=== PATIENT | male | born 1960 | race Caucasian/White ===

== ENCOUNTER → 2016-03-23 | Outpatient (REF) | payer OTHER ==
[~2016-03-23] MED LIST: AMLO5TAB2 PO; ASPI81TAEC PO; ATOR1TAB21 PO; COLA100C PO
[2016-03-23 12:37] LABS: ALBUMIN 4.3 GM/DL (3.2-5.2); ALKALINE PHOSPHATASE 140 U/L (45-117); ALT/SGPT 80 U/L (12-78); ANION GAP 9 MEQ/L (8-16); AST/SGOT 40 U/L (15-37); BILIRUBIN,TOTAL 0.4 MG/DL (0.2-1.0); BLOOD UREA NITROGEN 13 MG/DL (7-18); CALCIUM LEVEL 9.8 MG/DL (8.5-10.1); CARBON DIOXIDE LEVEL 28 MEQ/L (21-32); CHLORIDE LEVEL 107 MEQ/L (98-107); CHOLESTEROL LEVEL 164 MG/DL (<200); CREATININE FOR GFR 0.92 MG/DL (0.70-1.30); GLOMERULAR FILTRATION RATE > 60.0 (>56); GLUCOSE, FASTING 94 MG/DL (70-105); MAGNESIUM LEVEL 2.3 MG/DL (1.8-2.4); POTASSIUM SERUM 4.5 MEQ/L (3.5-5.1); SODIUM LEVEL 144 MEQ/L (136-145); TOTAL PROTEIN 7.6 GM/DL (6.4-8.2); TRIGLYCERIDES LEVEL 220 MG/DL (<150)
== END ==
LOC: M SFHCPLAZ 07:59
PROVIDERS: ATTEND Family Medicine
DX: E78.2 Mixed hyperlipidemia (principal); I10 Essential (primary) hypertension; Z12.5 Encounter for screening for malignant neoplasm of prostate
CPT/HCPCS: 36415; 80053; 80061; 81001; 82043; 82550; 83735; 86140; G0103

== ENCOUNTER → 2016-03-28 | Outpatient (REF) | payer OTHER | LOC: M LABDRAW1 15:28 | PROVIDERS: ATTEND Psychiatry & Neurology Neurology | DX: R51 Headache (principal) ==

== ENCOUNTER → 2016-03-28 | Outpatient (CLI) | payer OTHER ==
--- NOTE | 2016-03-28 14:06 | REP ---
CT HEAD WITHOUT CONTRAST: HISTORY: Infarction. COMPARISON: MR 02/24/2016 A small area of decreased attenuation is present in the posterior left temporal and occipital lobes. There is dilatation of the overlying cortical sulci and atrium and occipital horn of the left lateral ventricle. This represents an old infarction. Areas of decreased attenuation are present in the periventricular and subcortical white matter. This represents small vessel ischemic disease. There is no intraparenchymal hemorrhage, mass or midline shift. The ventricular system and cortical sulci are dilated consistent with minimal volume loss. There is no extracerebral collection. The visualized sinuses are clear. IMPRESSION: 1. 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 2. Small vessel ischemic disease. 3. Minimal volume loss. Signed by Emanuel Dyer MD 03/28/2016 02:13 P
== END ==
LOC: M RAD 12:56
PROVIDERS: ATTEND Psychiatry & Neurology Neurology
DX: I63.9 Cerebral infarction, unspecified (principal); R51 Headache

== ENCOUNTER → 2016-05-19 | Outpatient (REF) | payer OTHER ==
[2016-05-19 14:04] LABS: ALBUMIN 3.9 GM/DL (3.2-5.2); ALBUMIN/GLOBULIN RATIO 1.39 (1.00-1.93); ALKALINE PHOSPHATASE 147 U/L (45-117); ALT/SGPT 58 U/L (12-78); ANION GAP 9 MEQ/L (8-16); AST/SGOT 31 U/L (15-37); BILIRUBIN,TOTAL 0.4 MG/DL (0.2-1.0); BLOOD UREA NITROGEN 10 MG/DL (7-18); CALCIUM LEVEL 8.6 MG/DL (8.5-10.1); CARBON DIOXIDE LEVEL 29 MEQ/L (21-32); CHLORIDE LEVEL 106 MEQ/L (98-107); CREATININE FOR GFR 1.01 MG/DL (0.70-1.30); FERRITIN 406 NG/ML (26-388); GLOMERULAR FILTRATION RATE > 60.0 (>56); GLUCOSE, FASTING 87 MG/DL (70-105); PERCENT SATURATION 23.6 % (19.7-37.4); SODIUM LEVEL 144 MEQ/L (136-145); TOTAL IRON BINDING CAPACITY 331 UG/DL (250-450); TOTAL PROTEIN 6.7 GM/DL (6.4-8.2)
== END ==
LOC: M SFHCPLAZ 09:42
PROVIDERS: ATTEND Family Medicine
DX: Z12.5 Encounter for screening for malignant neoplasm of prostate (principal); K70.9 Alcoholic liver disease, unspecified
CPT/HCPCS: 36415; 80053; 82728; 83550; 83970; 86021; 86038; 86803; 87340; G0103

== ENCOUNTER → 2017-01-23 | Outpatient (REF) ==
[~2017-01-23] MED LIST changes: -COLA100C PO; +COLA100C5 PO
--- NOTE | 2017-01-23 11:57 | REP ---
Clinical: Pain. Technique: Internal rotation, external rotation, and Y view left shoulder. Findings: Mild cortical irregularity at the acromioclavicular joint is appreciated. No significant osteophytosis or periarticular calcifications are identified. Surrounding soft tissues are grossly unremarkable. Evidence for prior tendinous repair with plug in the proximal humeral diaphysis. Impression: Mild arthritic degenerative changes. Signed by Jw Ann MD 01/23/2017 11:49 A
--- NOTE | 2017-01-23 12:00 | REP ---
Clinical: Pain and disability. Technique: AP, lateral, coned-down views of the lumbosacral spine. Findings: Alignment and lordosis maintained. Endplate sclerosis and disc space narrowing at the L4-5 and L5-S1 levels with mild chronic compression deformity to the L5 vertebral body consistent with focal moderate degenerative disc disease. No acute fracture / compression injury or subluxation. Impression: Moderate degenerative disc disease involving the L5 vertebral body and associated L4-5 and L5-S1 disc levels. Signed by Jw Ann MD 01/23/2017 11:51 A
== END ==
LOC: M SMT 11:19
PROVIDERS: ATTEND Internal Medicine
DX: M51.36 Other intervertebral disc degeneration, lumbar region (principal)

== ENCOUNTER → 2017-02-09 | Outpatient (REF) | payer OTHER ==
[2017-02-09 12:07] LABS: INR 0.96
[2017-02-09 12:17] LABS: ALBUMIN 4.1 GM/DL (3.2-5.2); ALBUMIN/GLOBULIN RATIO 1.32 (1.00-1.93); ALKALINE PHOSPHATASE 114 U/L (45-117); ALT/SGPT 61 U/L (12-78); ANION GAP 10 MEQ/L (8-16); AST/SGOT 31 U/L (7-37); BILIRUBIN,TOTAL 0.4 MG/DL (0.2-1.0); BLOOD UREA NITROGEN 8 MG/DL (7-18); CALCIUM LEVEL 9.6 MG/DL (8.5-10.1); CARBON DIOXIDE LEVEL 26 MEQ/L (21-32); CHLORIDE LEVEL 107 MEQ/L (98-107); CREATININE FOR GFR 0.85 MG/DL (0.70-1.30); GLOMERULAR FILTRATION RATE > 60.0 (>56); GLUCOSE, FASTING 99 MG/DL (70-105); POTASSIUM SERUM 4.5 MEQ/L (3.5-5.1); SODIUM LEVEL 143 MEQ/L (136-145); TOTAL PROTEIN 7.2 GM/DL (6.4-8.2)
== END ==
LOC: M SFHCPLAZ 09:29
PROVIDERS: ATTEND Family Medicine
DX: K70.9 Alcoholic liver disease, unspecified (principal); R73.01 Impaired fasting glucose; E55.9 Vitamin D deficiency, unspecified

== ENCOUNTER → 2017-06-05 | Outpatient (REF) | payer OTHER ==
[2017-06-05 12:10] LABS: ALBUMIN 4.4 GM/DL (3.2-5.2); ANION GAP 6 MEQ/L (8-16); BLOOD UREA NITROGEN 12 MG/DL (7-18); C REACTIVE PROTEIN QUANTITATIV 0.38 MG/DL (0.00-0.30); CALCIUM LEVEL 9.5 MG/DL (8.5-10.1); CARBON DIOXIDE LEVEL 29 MEQ/L (21-32); CHLORIDE LEVEL 103 MEQ/L (98-107); CHOLESTEROL LEVEL 180 MG/DL (<200); CHOLESTEROL RISK RATIO 2.278 (<5); CPK CREATINE PHOSPHOKINASE 117 U/L (39-308); CREATININE FOR GFR 0.98 MG/DL (0.70-1.30); GLOMERULAR FILTRATION RATE > 60.0 (>56); GLUCOSE, FASTING 121 MG/DL (70-100); HDL CHOLESTEROL 79 MG/DL (>40); MAGNESIUM LEVEL 2.4 MG/DL (1.8-2.4); NON-HDL-C 101 MG/DL; PHOSPHORUS LEVEL 3.4 MG/DL (2.5-4.9); POTASSIUM SERUM 4.7 MEQ/L (3.5-5.1); PSA SCREENING 6.71 NG/ML (< 4.0); SODIUM LEVEL 138 MEQ/L (136-145); TRIGLYCERIDES LEVEL 165 MG/DL (<150)
[2017-06-05 12:13] LABS: PTH INTACT 54.4 PG/ML (18.5-88.0); TOTAL 25(OH) VITAMIN D 30.5 NG/ML (30.0-100.0)
[2017-06-05 14:16] LABS: ESTIMATED AVERAGE GLUCOSE 114 MG/DL (60-110); HEMOGLOBIN A1c 5.6 %
[2017-06-08 00:07] LABS: VITAMIN D 1,25 DIHYDROXY 41.4 pg/mL (19.9-79.3)
== END ==
LOC: M SFHCPLAZ 08:44
DX: E78.2 Mixed hyperlipidemia (principal); R73.01 Impaired fasting glucose; E55.9 Vitamin D deficiency, unspecified; Z12.5 Encounter for screening for malignant neoplasm of prostate

== ENCOUNTER → 2017-11-07 | Outpatient (CLI) | payer OTHER | LOC: M WUC 17:11 | DX: M19.041 Primary osteoarthritis, right hand (principal) | CPT/HCPCS: 73030 ==

== ENCOUNTER 2017-11-14 15:09 | Outpatient (RCR) | payer OTHER | END 2017-12-02 | LOC: M PT 11-19 09:13 | DX: Z51.89 Encounter for other specified aftercare (principal); M25.511 Pain in right shoulder | CPT/HCPCS: 97010 ==

== ENCOUNTER 2017-12-03 10:19 | Outpatient (RCR) | payer OTHER | END 2018-01-02 | LOC: M PT 12-06 10:00 | DX: Z51.89 Encounter for other specified aftercare (principal); M25.511 Pain in right shoulder | CPT/HCPCS: 97010 ==

== ENCOUNTER → 2018-02-07 | Outpatient (REF) | payer OTHER ==
[2018-02-07 18:48] LABS: PROTHROMBIN TIME 13.3 SECONDS (12.1-14.4)
[2018-02-07 18:49] LABS: PARTIAL THROMBOPLASTIN TIME 27.2 SECONDS (25.4-37.6)
[2018-02-07 18:54] LABS: ESTIMATED AVERAGE GLUCOSE 151 MG/DL (60-110); HEMOGLOBIN A1c 6.9 %
[2018-02-07 18:57] LABS: ALBUMIN/GLOBULIN RATIO 1.21 (1.00-1.93); ALKALINE PHOSPHATASE 133 U/L (45-117); ALT/SGPT 64 U/L (12-78); ANION GAP 10 MEQ/L (8-16); AST/SGOT 46 U/L (7-37); BILIRUBIN,TOTAL 0.4 MG/DL (0.2-1.0); BLOOD UREA NITROGEN 12 MG/DL (7-18); CALCIUM LEVEL 9.1 MG/DL (8.5-10.1); CARBON DIOXIDE LEVEL 27 MEQ/L (21-32); CHLORIDE LEVEL 103 MEQ/L (98-107); CREATININE FOR GFR 0.79 MG/DL (0.70-1.30); GLOMERULAR FILTRATION RATE > 60.0 (>56); GLUCOSE, FASTING 89 MG/DL (70-100); MAGNESIUM LEVEL 2.2 MG/DL (1.8-2.4); POTASSIUM SERUM 4.6 MEQ/L (3.5-5.1); PSA SCREENING 1.4 NG/ML (< 4.0); SODIUM LEVEL 140 MEQ/L (136-145); TOTAL PROTEIN 7.3 GM/DL (6.4-8.2)
[2018-02-07 19:04] LABS: PTH INTACT 62.7 PG/ML (18.5-88.0); TOTAL 25(OH) VITAMIN D 28.6 NG/ML (30.0-100.0)
[2018-02-08 10:58] LABS: ALPHA FETOPROTEIN TUMOR QUANT 3.2 NG/ML (<8.1)
[2018-02-09 14:13] LABS: INSULIN LEVEL 61.8 uIU/mL (2.6-24.9)
== END ==
LOC: M SFHCPLAZ 15:13
DX: Z12.5 Encounter for screening for malignant neoplasm of prostate (principal); R73.01 Impaired fasting glucose; I10 Essential (primary) hypertension; E55.9 Vitamin D deficiency, unspecified; G44.209 Tension-type headache, unspecified, not intractable

== ENCOUNTER → 2020-08-09 | Outpatient (REF) | payer MEDICARE ==
[~2020-08-09] MED LIST changes: +AMLO1TAB24 PO; -AMLO5TAB2 PO; +ASPI-569 PO; -ASPI81TAEC PO
[2020-08-09 13:19] LABS: BASO % 0.6 % (0.0-1.0); EOS # 0.3 10^3/uL (0.0-0.5); EOS % 3.8 % (0.0-3.0); HEMATOCRIT 44.3 % (42.0-52.0); HEMOGLOBIN 14.6 g/dl (13.5-17.5); LYMPH # 1.2 10^3/uL (1.5-5.0); LYMPH % 18.2 % (24.0-44.0); MEAN CORPUSCULAR HEMOGLOBIN 31.5 pg (27.0-33.0); MEAN CORPUSCULAR VOLUME 95.5 fl (80.0-96.0); MONO # 0.8 10^3/uL (0.0-0.8); MONO % 11.5 % (2.0-8.0); NEUTROPHILS # 4.3 10^3/uL (1.5-8.5); NEUTROPHILS % 65.1 % (36.0-66.0); PLATELET COUNT, AUTOMATED 151 10^3/uL (150-450); RED BLOOD COUNT 4.64 10^6/uL (4.30-6.10); WHITE BLOOD COUNT 6.5 10^3/uL (4.0-10.0)
[2020-08-09 13:50] LABS: ALBUMIN 4.3 GM/DL (3.2-5.2); ALT/SGPT 130 U/L (12-78); BILIRUBIN,TOTAL 0.3 MG/DL (0.2-1.0); BLOOD UREA NITROGEN 14 MG/DL (7-18); CALCIUM LEVEL 9.7 MG/DL (8.8-10.2); CARBON DIOXIDE LEVEL 30 MEQ/L (21-32); CHLORIDE LEVEL 103 MEQ/L (98-107); CHOLESTEROL LEVEL 145 MG/DL (<200); CHOLESTEROL RISK RATIO 3.222 (<5); CREATININE FOR GFR 0.76 MG/DL (0.70-1.30); FERRITIN 581 NG/ML (26-388); FREE T4 1.02 NG/DL (0.76-1.46); GLOMERULAR FILTRATION RATE > 60.0 (>49); GLUCOSE, FASTING 127 MG/DL (70-100); HDL CHOLESTEROL 45 MG/DL (>40); LDL CHOLESTEROL 54 MG/DL (<100); NON-HDL-C 100 MG/DL; POTASSIUM SERUM 5.2 MEQ/L (3.5-5.1); SODIUM LEVEL 137 MEQ/L (136-145); TOTAL PROTEIN 7.6 GM/DL (6.4-8.2); TRIGLYCERIDES LEVEL 231 MG/DL (<150)
[2020-08-09 13:52] LABS: PTH INTACT 54.6 PG/ML (18.5-88.0); TOTAL 25(OH) VITAMIN D 29.1 NG/ML (30.0-100.0)
[2020-08-09 14:03] LABS: MALB URINE SIEMENS 8.4 MG/L; MAU/CREAT RATIO 6.7 MCG/MG (0.0-30.0)
== END ==
LOC: M SFHCPLAZ 09:33
PROVIDERS: ATTEND Family Medicine
DX: R73.01 Impaired fasting glucose (principal); I10 Essential (primary) hypertension; Z12.5 Encounter for screening for malignant neoplasm of prostate; E55.9 Vitamin D deficiency, unspecified; Z79.899 Other long term (current) drug therapy
CPT/HCPCS: 36415; 80053; 80061; 82043; 82306; 82728; 83036; 83525; 83970; 84439; 84443; 85025; G0103

== ENCOUNTER → 2020-08-18 | Outpatient (CLI) | payer MEDICARE ==
--- NOTE | 2020-08-18 10:37 | REP ---
INDICATION: ALCOHOLIC LIVER DISEASE COMPARISON: None. TECHNIQUE: Real time anthony scale ultrasound examination using curved array transducer. FINDINGS: Liver is hyperechoic with decreased through transmission suggesting fatty infiltration. No focal hepatic lesion identified. Pancreas is incompletely evaluated due to interposed bowel gas. The gallbladder is normal and without gallstones, wall thickening, or pericholecystic fluid. No biliary ductal dilatation is appreciated and the common bile duct measures 3.3 mm diameter. Right kidney is normal in reniform shape without hydronephrosis and measures 11.7 x 5.8 x 5.4 cm. No ascites in the visualized right upper quadrant. IMPRESSION: Hepatosteatosis. <Electronically signed by Jw Ann > 08/18/20 [id number]
== END ==
LOC: M RAD 09:44
PROVIDERS: ATTEND Family Medicine
DX: K70.9 Alcoholic liver disease, unspecified (principal)

== ENCOUNTER → 2021-02-08 | Outpatient (CLI) | payer MEDICARE ==
[2021-02-08 10:31] LABS: BASO % 0.4 % (0.0-1.0); EOS # 0.4 10^3/uL (0.0-0.5); EOS % 5.2 % (0.0-3.0); HEMOGLOBIN 15.2 g/dl (13.5-17.5); LYMPH # 1.5 10^3/uL (1.5-5.0); LYMPH % 21.8 % (24.0-44.0); MEAN CORPUSCULAR HEMOGLOBIN 31.1 pg (27.0-33.0); MEAN CORPUSCULAR VOLUME 94.3 fl (80.0-96.0); MONO # 0.8 10^3/uL (0.0-0.8); MONO % 11.2 % (2.0-8.0); NEUTROPHILS # 4.1 10^3/uL (1.5-8.5); NEUTROPHILS % 60.8 % (36.0-66.0); PLATELET COUNT, AUTOMATED 163 10^3/uL (150-450); RED BLOOD COUNT 4.88 10^6/uL (4.30-6.10); WHITE BLOOD COUNT 6.7 10^3/uL (4.0-10.0)
[2021-02-08 10:41] LABS: INR 0.94
[2021-02-08 10:42] LABS: PARTIAL THROMBOPLASTIN TIME 27.4 SECONDS (25.9-37.0)
[2021-02-08 11:22] LABS: ALBUMIN 4.2 GM/DL (3.2-5.2); ALT/SGPT 88 U/L (12-78); BILIRUBIN,TOTAL 0.4 MG/DL (0.2-1.0); BLOOD UREA NITROGEN 11 MG/DL (7-18); CALCIUM LEVEL 10.2 MG/DL (8.8-10.2); CARBON DIOXIDE LEVEL 29 MEQ/L (21-32); CHLORIDE LEVEL 104 MEQ/L (98-107); CREATININE FOR GFR 0.87 MG/DL (0.70-1.30); FERRITIN 544 NG/ML (26-388); FREE T4 0.97 NG/DL (0.76-1.46); GLOMERULAR FILTRATION RATE > 60.0 (>49); GLUCOSE, FASTING 113 MG/DL (70-100); IRON (FE) 157 UG/DL (65-175); PERCENT SATURATION 42.5 % (19.7-50.0); SODIUM LEVEL 139 MEQ/L (136-145); TOTAL IRON BINDING CAPACITY 369 UG/DL (250-450); VITAMIN B12 LEVEL 318 PG/ML (247-911)
[2021-02-10 11:52] LABS: ALBUMIN 4.67 GM/DL (3.29-5.55); ALBUMIN % 58.4 % (55.8-66.1); ALPHA-1-GLOBULIN % 4.3 % (2.9-4.9); ALPHA-1-GLOBULINS 0.34 GM/DL (0.17-0.41); ALPHA-2-GLOBULINS 0.93 GM/DL (0.42-0.99); ALPHA-2-GLOBULINS % 11.6 % (7.1-11.8); BETA-1-GLOBULINS % 6.2 % (4.7-7.2); BETA-2-GLOBULINS 0.42 GM/DL (0.19-0.55); BETA-2-GLOBULINS % 5.3 % (3.2-6.5); GAMMA GLOBULIN % 14.2 % (11.1-18.8); GAMMA GLOBULINS 1.14 GM/DL (0.65-1.58)
== END ==
LOC: M PLALAB 09:06
PROVIDERS: ATTEND Family Medicine
DX: R73.01 Impaired fasting glucose (principal); K70.9 Alcoholic liver disease, unspecified; E78.2 Mixed hyperlipidemia; D75.89 Other specified diseases of blood and blood-forming organs
CPT/HCPCS: 36415; 80053; 82105; 82140; 82172; 82607; 82728; 83010; 83036; 83550; 83883; 84165; 84439; 84443; 85025; 85610; 85730; G0463

== ENCOUNTER → 2021-03-08 | Outpatient (CLI) | payer MEDICARE ==
[~2021-03-08] MED LIST changes: +PROHANCE 279.3MG/ML 15ML VIAL As Ordered ONE; +PROHANCE 279.3MG/ML 5ML VIAL As Ordered ONE
--- NOTE | 2021-03-08 15:52 | REPVR ---
PROCEDURE INFORMATION: Exam: MR Head Without and With Contrast Exam date and time: 03/08/2021 3:16 PM Age: 60 years old Clinical indication: Condition or disease; Patient HX: PT states following up on HX of stroke 6-7 yrs ago, where he lost vision in RT eye; Additional info: Optic neuritis TECHNIQUE: Imaging protocol: MR of the head without and with intravenous contrast. Contrast material: PROHANCE; Contrast volume: 16 ml; Contrast route: INTRAVENOUS (IV); COMPARISON: CT Head without contrast 03/28/2016 1:11 PM FINDINGS: Brain: Examination again demonstrates a chronic infarction in the left occipital lobe with adjacent volume loss changes. There is mild patchy increased T2 signal intensity within the bilateral cerebral periventricular white matter, consistent with chronic microvascular ischemic changes. There is no abnormal diffusion weighted signal intensity to suggest an acute ischemic event. There is mild diffuse cerebral atrophy present, consistent with this patient's age. Examination of the posterior fossa demonstrates no significant abnormality. Cerebral ventricles: The ventricular system demonstrates mild diffuse compensatory enlargement. Bones/joints: Unremarkable. Paranasal sinuses: Chronic right maxillary sinusitis with near-complete opacification. Mastoid air cells: Normal as visualized. No mastoid effusion. Orbital cavity: Unremarkable. Soft tissues: Unremarkable. IMPRESSION: 1. No acute infarction, masses or hemorrhage is seen. No acute intracranial abnormality is identified. No abnormal contrast enhancement is seen.There has been no adverse interval change since the previous study. 2. Diffuse age-related cerebral atrophy and mild chronic microvascular white matter ischemic changes, without evidence of an acute intracranial abnormality. 3. Examination again demonstrates a chronic infarction in the left occipital lobe with adjacent volume loss changes. 4. Chronic right maxillary sinusitis with near-complete opacification. Electronically signed by: Keo Padron On 03/08/2021 15:52:12 PM
--- NOTE | 2021-03-08 15:59 | REPVR ---
PROCEDURE INFORMATION: Exam: MR Orbit Without and With Contrast Exam date and time: 03/08/2021 3:17 PM Age: 60 years old Clinical indication: Condition or disease; Patient HX: PT states following up on HX of stroke from 6-7 yrs ago and lost vision in RT eye; Additional info: Optic neuritis TECHNIQUE: Imaging protocol: MR Orbit was performed without and with contrast. Contrast material: PROHANCE; Contrast volume: 16 ml; Contrast route: INTRAVENOUS (IV); COMPARISON: CT Head without contrast 03/28/2016 1:11 PM FINDINGS: Orbital cavity: Examination reveals bilateral globes to be normal in size and morphology. The optic nerves are normal in thickness and signal intensity and symmetric bilaterally. The extraocular muscles are normal in thickness and signal intensity. The retroconal fat has a normal appearance. The lacrimal glands appear normal bilaterally. No abnormal contrast enhancement is seen. Paranasal sinuses: Chronic right maxillary sinusitis with near-complete opacification. Mild mucosal thickening in bilateral ethmoid sinuses. Brain: No acute infarction, masses or hemorrhage is seen. No acute intracranial abnormality is identified.There is mild diffuse cerebral atrophy present, consistent with this patient's age. Pituitary gland and sella: The pituitary gland is normal in size, signal and enhancement. No hemorrhage or masses are seen. Normal posterior pituitary bright signal on T1-weighted images is identified. The pituitary stalk is in the midline. The cavernous sinuses and suprasellar cistern appear normal. Cerebral ventricles: The ventricular system demonstrates mild diffuse compensatory enlargement. Bones/joints: Bone marrow signal intensity of the visualized osseous structures is unremarkable. No acute fracture or dislocation is seen. Soft tissues: Unremarkable. IMPRESSION: 1. Examination reveals bilateral globes to be normal in size and morphology. The optic nerves are normal in thickness and signal intensity and symmetric bilaterally. The extraocular muscles are normal in thickness and signal intensity. The retroconal fat has a normal appearance. The lacrimal glands appear normal bilaterally. No abnormal contrast enhancement is seen. 2. Chronic right maxillary sinusitis with near-complete opacification. Mild mucosal thickening in bilateral ethmoid sinuses. Electronically signed by: Keo Padron On 03/08/2021 15:58:39 PM
== END ==
LOC: M RAD 13:07
PROVIDERS: ATTEND Ophthalmology
DX: H46.9 Unspecified optic neuritis (principal); J01.00 Acute maxillary sinusitis, unspecified; G31.9 Degenerative disease of nervous system, unspecified
CPT/HCPCS: 70543; 70553; A9576

== ENCOUNTER → 2021-08-02 | Outpatient (CLI) | payer MEDICARE ==
[~2021-08-02] MED LIST changes: -PROHANCE 279.3MG/ML 15ML VIAL As Ordered ONE; -PROHANCE 279.3MG/ML 5ML VIAL As Ordered ONE
[2021-08-02 14:18] LABS: HEMOGLOBIN A1c 6.1 %
[2021-08-02 14:35] LABS: ALBUMIN 3.9 GM/DL (3.2-5.2); ALT/SGPT 89 U/L (12-78); BILIRUBIN,TOTAL 0.3 MG/DL (0.2-1.0); BLOOD UREA NITROGEN 10 MG/DL (7-18); CALCIUM LEVEL 9.9 MG/DL (8.8-10.2); CARBON DIOXIDE LEVEL 32 MEQ/L (21-32); CHLORIDE LEVEL 104 MEQ/L (98-107); CHOLESTEROL LEVEL 161 MG/DL (<200); CHOLESTEROL RISK RATIO 2.824 (<5); FREE T4 0.91 NG/DL (0.76-1.46); GLOMERULAR FILTRATION RATE > 60.0 (>49); GLUCOSE, FASTING 122 MG/DL (70-100); HDL CHOLESTEROL 57 MG/DL (>40); LDL CHOLESTEROL 68 MG/DL (<100); NON-HDL-C 104 MG/DL; POTASSIUM SERUM 5.1 MEQ/L (3.5-5.1); SODIUM LEVEL 139 MEQ/L (136-145); TOTAL PROTEIN 7.5 GM/DL (6.4-8.2); TRIGLYCERIDES LEVEL 180 MG/DL (<150)
[2021-08-02 15:02] LABS: THYROID PEROXIDASE ANTIBODY < 28.0 U/ML (<60.0); TOTAL 25(OH) VITAMIN D 38.9 NG/ML (30.0-100.0)
[2021-08-02 15:03] LABS: PTH INTACT 44.9 PG/ML (18.5-88.0); THYROGLOBULIN ANTIBODY < 15.0 U/ML (<60.0); VITAMIN B12 LEVEL 235 PG/ML (247-911)
[2021-08-05 17:11] LABS: INSULIN LEVEL 25.9 uIU/mL (2.6-24.9)
== END ==
LOC: M PLALAB 09:47
PROVIDERS: ATTEND Family Medicine
DX: E55.9 Vitamin D deficiency, unspecified (principal); K70.9 Alcoholic liver disease, unspecified; R73.01 Impaired fasting glucose; E03.9 Hypothyroidism, unspecified; D75.89 Other specified diseases of blood and blood-forming organs; Z12.5 Encounter for screening for malignant neoplasm of prostate

== ENCOUNTER → 2022-05-24 | Outpatient (CLI) | payer MEDICARE ==
[2022-05-24 12:35] LABS: HEMATOCRIT 41.5 % (42.0-52.0)
[2022-05-24 13:14] LABS: FERRITIN 386.8 NG/ML (10.5-307.3)
[2022-05-24 13:15] LABS: ALBUMIN 4.1 G/DL (3.2-5.2); ALKALINE PHOSPHATASE 240 U/L (46-116); ALT/SGPT 95 U/L (7.0-40); AST/SGOT 79 U/L (<34); BILIRUBIN,TOTAL 0.5 MG/DL (0.3-1.2); BLOOD UREA NITROGEN 11 MG/DL (9-23); CALCIUM LEVEL 9.6 MG/DL (8.3-10.6); CARBON DIOXIDE LEVEL 30 MMOL/L (20-31); CHLORIDE LEVEL 99 MMOL/L (98-107); CREATININE FOR GFR 0.71 MG/DL (0.70-1.30); GLOMERULAR FILTRATION RATE > 60.0 (>49); GLUCOSE, FASTING 121 MG/DL (74-106); POTASSIUM SERUM 4.5 MMOL/L (3.5-5.1); SODIUM LEVEL 137 MMOL/L (136-145); THYROID STIMULATING HORMONE 5.632 uIU/ML (0.55-4.78); TOTAL PROTEIN 7.3 G/DL (5.7-8.2)
[2022-05-24 13:16] LABS: FREE T4 1.01 NG/DL (0.89-1.76)
[2022-05-24 13:17] LABS: HEMOGLOBIN A1c 5.3 % (4.0-6.0); VITAMIN B12 LEVEL 1031 PG/ML (211-911)
[2022-05-24 16:22] LABS: BASO % 0.6 % (0.0-1.0); EOS # 0.2 10^3/uL (0.0-0.5); EOS % 2.6 % (0.0-3.0); HEMOGLOBIN 13.8 g/dl (13.5-17.5); LYMPH # 1.2 10^3/uL (1.5-5.0); LYMPH % 17.4 % (24.0-44.0); MEAN CORPUSCULAR HEMOGLOBIN 32.2 pg (27.0-33.0); MEAN CORPUSCULAR HGB CONC 33.7 g/dl (32.0-36.5); MEAN CORPUSCULAR VOLUME 95.6 fl (80.0-96.0); MONO # 0.9 10^3/uL (0.0-0.8); MONO % 12.8 % (2.0-8.0); NEUTROPHILS # 4.7 10^3/uL (1.5-8.5); NEUTROPHILS % 66.3 % (36.0-66.0); PLATELET COUNT, AUTOMATED 149 10^3/uL (150-450); RED BLOOD COUNT 4.29 10^6/uL (4.30-6.10)
== END ==
LOC: M WUC 09:57
PROVIDERS: ATTEND Family Medicine
DX: E53.8 Deficiency of other specified B group vitamins (principal); R73.01 Impaired fasting glucose; E03.9 Hypothyroidism, unspecified; Z79.82 Long term (current) use of aspirin; Z79.899 Other long term (current) drug therapy

== ENCOUNTER → 2023-01-15 | Outpatient (CLI) | payer MEDICARE ==
[2023-01-15 15:48] LABS: ALKALINE PHOSPHATASE 318 U/L (46-116); ALT/SGPT 115 U/L (7.0-40); AST/SGOT 128 U/L (<34); BILIRUBIN,TOTAL 0.7 MG/DL (0.3-1.2); BLOOD UREA NITROGEN 8 MG/DL (9-23); CALCIUM LEVEL 9.9 MG/DL (8.3-10.6); CARBON DIOXIDE LEVEL 29 MMOL/L (20-31); CHLORIDE LEVEL 100 MMOL/L (98-107); CHOLESTEROL LEVEL 172 MG/DL (<200); CHOLESTEROL RISK RATIO 2.19 (<5); CREATININE FOR GFR 0.64 MG/DL (0.70-1.30); GLOMERULAR FILTRATION RATE > 60.0 (>49); GLUCOSE, FASTING 108 MG/DL (74-106); HDL CHOLESTEROL 78.4 MG/DL (>40); INR 1.15; LDL CHOLESTEROL 74.2 MG/DL (<100); NON-HDL-C 93.6 MG/DL; POTASSIUM SERUM 5.1 MMOL/L (3.5-5.1); PROTHROMBIN TIME 14.4 SECONDS (12.5-14.5); SODIUM LEVEL 135 MMOL/L (136-145); THYROID STIMULATING HORMONE 2.464 uIU/ML (0.55-4.78); TOTAL PROTEIN 7.8 G/DL (5.7-8.2); TRIGLYCERIDES LEVEL 97 MG/DL (<150)
[2023-01-15 15:49] LABS: PARTIAL THROMBOPLASTIN TIME 30.2 SECONDS (24.8-34.2)
[2023-01-15 16:13] LABS: HEMOGLOBIN A1c 5.3 % (4.0-6.0)
== END ==
LOC: M PLALAB 12:15
PROVIDERS: ATTEND Family Medicine
DX: R73.01 Impaired fasting glucose (principal); K70.9 Alcoholic liver disease, unspecified; E03.9 Hypothyroidism, unspecified

== ENCOUNTER → 2023-08-07 | Outpatient (CLI) | payer MEDICARE ==
[2023-08-07 11:11] LABS: BASO % 0.5 % (0.0-1.0); EOS # 0.3 10^3/uL (0.0-0.5); EOS % 3.7 % (0.0-3.0); HEMATOCRIT 41.5 % (42.0-52.0); HEMOGLOBIN 13.7 g/dl (13.5-17.5); LYMPH % 13.4 % (24.0-44.0); MEAN CORPUSCULAR HEMOGLOBIN 31.5 pg (27.0-33.0); MEAN CORPUSCULAR VOLUME 95.4 fl (80.0-96.0); MONO # 1.1 10^3/uL (0.0-0.8); MONO % 15.1 % (2.0-8.0); NEUTROPHILS # 4.9 10^3/uL (1.5-8.5); PLATELET COUNT, AUTOMATED 169 10^3/uL (150-450); RED BLOOD COUNT 4.35 10^6/uL (4.30-6.10); WHITE BLOOD COUNT 7.4 10^3/uL (4.0-10.0)
[2023-08-07 11:14] LABS: HEMOGLOBIN A1c 5.2 % (4.0-6.0)
[2023-08-07 11:16] LABS: PSA SCREENING 1.64 NG/ML (< 4.00)
[2023-08-07 11:19] LABS: ALBUMIN 3.1 G/DL (3.2-5.2); ALKALINE PHOSPHATASE 353 U/L (46-116); ALT/SGPT 62 U/L (7.0-40); AST/SGOT 103 U/L (<34); BILIRUBIN,TOTAL 0.7 MG/DL (0.3-1.2); BLOOD UREA NITROGEN 9 MG/DL (9-23); CALCIUM LEVEL 9.8 MG/DL (8.3-10.6); CARBON DIOXIDE LEVEL 26 MMOL/L (20-31); CHLORIDE LEVEL 105 MMOL/L (98-107); CREATININE FOR GFR 0.63 MG/DL (0.70-1.30); GLOMERULAR FILTRATION RATE > 60.0 (>49); GLUCOSE, FASTING 104 MG/DL (74-106); POTASSIUM SERUM 4.4 MMOL/L (3.5-5.1); SODIUM LEVEL 140 MMOL/L (136-145); TOTAL PROTEIN 6.9 G/DL (5.7-8.2)
[2023-08-07 11:20] LABS: FERRITIN 141.9 NG/ML (10.5-307.3); THYROID STIMULATING HORMONE 2.828 uIU/ML (0.55-4.78)
[2023-08-07 11:21] LABS: FREE T4 0.88 NG/DL (0.89-1.76); VITAMIN B12 LEVEL 860 PG/ML (211-911)
== END ==
LOC: M WUC 08:55
PROVIDERS: ATTEND Family Medicine
DX: D75.89 Other specified diseases of blood and blood-forming organs (principal); K70.9 Alcoholic liver disease, unspecified; E03.9 Hypothyroidism, unspecified; R73.01 Impaired fasting glucose; E78.2 Mixed hyperlipidemia; Z12.5 Encounter for screening for malignant neoplasm of prostate

== ENCOUNTER → 2024-01-07 | Outpatient (CLI) | payer MEDICARE ==
[2024-01-07 18:24] LABS: BASO % 0.5 % (0.0-1.0); EOS # 0.1 10^3/uL (0.0-0.5); HEMATOCRIT 39.2 % (42.0-52.0); HEMOGLOBIN 13.3 g/dl (13.5-17.5); LYMPH # 0.9 10^3/uL (1.5-5.0); LYMPH % 10.7 % (24.0-44.0); MEAN CORPUSCULAR HGB CONC 33.9 g/dl (32.0-36.5); MEAN CORPUSCULAR VOLUME 94.5 fl (80.0-96.0); MONO % 11.7 % (2.0-8.0); NEUTROPHILS # 6.2 10^3/uL (1.5-8.5); NEUTROPHILS % 75.7 % (36.0-66.0); PLATELET COUNT, AUTOMATED 153 10^3/uL (150-450); RED BLOOD COUNT 4.15 10^6/uL (4.30-6.10); WHITE BLOOD COUNT 8.1 10^3/uL (4.0-10.0)
[2024-01-07 18:49] LABS: ALBUMIN 2.6 G/DL (3.2-5.2); ALKALINE PHOSPHATASE 527 U/L (40-129); ALT/SGPT 88 U/L (7.0-40); AST/SGOT 208 U/L (<34); BILIRUBIN,TOTAL 3.3 MG/DL (0.3-1.2); BLOOD UREA NITROGEN 7 MG/DL (9-23); CALCIUM LEVEL 9.1 MG/DL (8.3-10.6); CARBON DIOXIDE LEVEL 27 MMOL/L (20-31); CHLORIDE LEVEL 101 MMOL/L (98-107); CREATININE FOR GFR 0.61 MG/DL (0.70-1.30); GLOMERULAR FILTRATION RATE > 60.0 (>49); GLUCOSE, FASTING 94 MG/DL (74-106); MAGNESIUM LEVEL 1.8 MG/DL (1.8-2.4); POTASSIUM SERUM 4.4 MMOL/L (3.5-5.1); SODIUM LEVEL 135 MMOL/L (136-145); TOTAL PROTEIN 7.3 G/DL (5.7-8.2)
== END ==
LOC: M PLALAB 15:37
PROVIDERS: ATTEND Physician Assistant Medical
DX: T14.8XXA Other injury of unspecified body region, initial encounter (principal); K70.9 Alcoholic liver disease, unspecified

== ENCOUNTER → 2024-01-09 | Outpatient (CLI) | payer MEDICARE | LOC: M RAD 14:21 | PROVIDERS: ATTEND Physician Assistant Medical | DX: R29.6 Repeated falls (principal) ==

== ENCOUNTER → 2024-01-21 | Outpatient (CLI) | payer MEDICARE ==
[~2024-01-21] MED LIST changes: +SERT25TA85 PO
[2024-01-21 18:29] LABS: ALBUMIN 2.5 G/DL (3.2-5.2); ALKALINE PHOSPHATASE 514 U/L (40-129); ALT/SGPT 209 U/L (7.0-40); AST/SGOT 447 U/L (<34); BILIRUBIN,TOTAL 3.9 MG/DL (0.3-1.2); BLOOD UREA NITROGEN 14 MG/DL (9-23); CALCIUM LEVEL 9.1 MG/DL (8.3-10.6); CARBON DIOXIDE LEVEL 28 MMOL/L (20-31); CHLORIDE LEVEL 100 MMOL/L (98-107); CREATININE FOR GFR 0.67 MG/DL (0.70-1.30); GLOMERULAR FILTRATION RATE > 60.0 (>49); GLUCOSE, FASTING 86 MG/DL (74-106); POTASSIUM SERUM 4.7 MMOL/L (3.5-5.1); SODIUM LEVEL 133 MMOL/L (136-145); TOTAL PROTEIN 7.1 G/DL (5.7-8.2)
== END ==
LOC: M PLALAB 16:07
PROVIDERS: ATTEND Physician Assistant Medical
DX: R10.11 Right upper quadrant pain (principal); R06.00 Dyspnea, unspecified

== ENCOUNTER → 2024-01-22 | Outpatient (CLI) | payer MEDICARE ==
[~2024-01-22] MED LIST changes: +ISOVUE-370 76% 100ML VIAL As Ordered ONE
== END ==
LOC: M RAD 07:00
PROVIDERS: ATTEND Physician Assistant Medical
DX: R10.11 Right upper quadrant pain (principal); K74.60 Unspecified cirrhosis of liver
CPT/HCPCS: 74177; Q9967

== ENCOUNTER → 2024-01-29 | Outpatient (CLI) | payer MEDICARE ==
[~2024-01-29] MED LIST changes: -ISOVUE-370 76% 100ML VIAL As Ordered ONE
[2024-01-29 14:05] VITALS: TEMP 97.8
[2024-01-29 15:36] VITALS: BP 124/60; O2SAT 98
== END ==
LOC: M IRPRO 13:49
PROVIDERS: ATTEND Physician Assistant Medical
DX: K70.31 Alcoholic cirrhosis of liver with ascites (principal)

== ENCOUNTER → 2024-02-05 | Outpatient (CLI) | payer MEDICARE ==
[~2024-02-05] MED LIST changes: +B-1100TA2 PO; +B-12100T2 PO; +CARV3.12 PO; +CLOP75TA2 PO; +CONS10SO3 PO; +LEVO25TA5 PO; +LISI20TA33 PO; +PRAV20TA2 PO; +TRAV2.5D OU; +VITA200016 PO; +ZOLO100T PO
[2024-02-05 15:31] LABS: HEMATOCRIT 37.7 % (42.0-52.0); HEMOGLOBIN 13.4 g/dl (13.5-17.5); MEAN CORPUSCULAR HEMOGLOBIN 32.9 pg (27.0-33.0); MEAN CORPUSCULAR HGB CONC 35.5 g/dl (32.0-36.5); MEAN CORPUSCULAR VOLUME 92.6 fl (80.0-96.0); PLATELET COUNT, AUTOMATED 236 10^3/uL (150-450); RED BLOOD COUNT 4.07 10^6/uL (4.30-6.10); WHITE BLOOD COUNT 15.5 10^3/uL (4.0-10.0)
[2024-02-05 15:45] LABS: INR 1.47; PARTIAL THROMBOPLASTIN TIME 33.1 SECONDS (24.8-34.2); PROTHROMBIN TIME 18.1 SECONDS (12.5-14.5)
[2024-02-05 16:14] LABS: ALBUMIN 2.2 G/DL (3.2-5.2); ALKALINE PHOSPHATASE 455 U/L (40-129); ALT/SGPT 247 U/L (7.0-40); AST/SGOT 314 U/L (<34); BILIRUBIN,TOTAL 3.7 MG/DL (0.3-1.2); BLOOD UREA NITROGEN 20 MG/DL (9-23); CALCIUM LEVEL 9.5 MG/DL (8.3-10.6); CARBON DIOXIDE LEVEL 28 MMOL/L (20-31); CHLORIDE LEVEL 95 MMOL/L (98-107); CREATININE FOR GFR 1.03 MG/DL (0.70-1.30); GLOMERULAR FILTRATION RATE > 60.0 (>49); GLUCOSE, FASTING 105 MG/DL (74-106); POTASSIUM SERUM 5.2 MMOL/L (3.5-5.1); SODIUM LEVEL 128 MMOL/L (136-145); TOTAL PROTEIN 6.6 G/DL (5.7-8.2)
== END ==
LOC: M LAB 15:01
DX: K70.31 Alcoholic cirrhosis of liver with ascites (principal)

== ENCOUNTER → 2024-02-05 | Outpatient (REF) | payer MEDICARE ==
[~2024-02-05] MED LIST changes: -B-1100TA2 PO; -B-12100T2 PO; -CARV3.12 PO; -CLOP75TA2 PO; -CONS10SO3 PO; -LEVO25TA5 PO; -LISI20TA33 PO; -PRAV20TA2 PO; -TRAV2.5D OU; -VITA200016 PO; -ZOLO100T PO
== END ==
LOC: M SFHCPLAZ 14:34
DX: K70.31 Alcoholic cirrhosis of liver with ascites (principal)

== ENCOUNTER → 2024-02-12 | Outpatient (CLI) | payer MEDICARE ==
[2024-02-12 14:00] VITALS: TEMP 96.7
[2024-02-12 14:55] VITALS: BP 117/61; O2SAT 99
== END ==
LOC: M IRPRO 13:44
DX: K70.31 Alcoholic cirrhosis of liver with ascites (principal)

== ENCOUNTER → 2024-02-19 | Outpatient (CLI) | payer MEDICARE ==
[~2024-02-19] MED LIST changes: +B-1100TA2 PO; +B-12100T2 PO; +CARV3.12 PO; +CLOP75TA2 PO; +CONS10SO3 PO; +LEVO25TA5 PO; +LISI20TA33 PO; +PRAV20TA2 PO; +TRAV2.5D OU; +VITA200016 PO; +ZOLO100T PO
[2024-02-19 15:58] LABS: BILIRUBIN,TOTAL 4.2 MG/DL (0.3-1.2); C REACTIVE PROTEIN QUANTITATIV 5.5 MG/DL (<1.0); CALCIUM LEVEL 9.2 MG/DL (8.3-10.6); CREATININE FOR GFR 1.44 MG/DL (0.70-1.30); GLOMERULAR FILTRATION RATE 52.6 (>49); POTASSIUM SERUM 5.6 MMOL/L (3.5-5.1); TOTAL PROTEIN 6.6 G/DL (5.7-8.2)
[2024-02-19 16:00] LABS: FREE T4 1.06 NG/DL (0.89-1.76); THYROID STIMULATING HORMONE 10.739 uIU/ML (0.55-4.78)
[2024-02-19 16:11] LABS: BASO # 0.1 10^3/uL (0.0-0.2); BASO % 0.3 % (0.0-1.0); EOS # 0.1 10^3/uL (0.0-0.5); EOS % 0.7 % (0.0-3.0); HEMOGLOBIN 13.1 g/dl (13.5-17.5); LYMPH # 1.2 10^3/uL (1.5-5.0); LYMPH % 7.9 % (24.0-44.0); MEAN CORPUSCULAR HEMOGLOBIN 31.2 pg (27.0-33.0); MEAN CORPUSCULAR HGB CONC 34.5 g/dl (32.0-36.5); MEAN CORPUSCULAR VOLUME 90.5 fl (80.0-96.0); MONO # 1.5 10^3/uL (0.0-0.8); MONO % 10.4 % (2.0-8.0); NEUTROPHILS # 11.7 10^3/uL (1.5-8.5); NEUTROPHILS % 79.7 % (36.0-66.0); PLATELET COUNT, AUTOMATED 262 10^3/uL (150-450); WHITE BLOOD COUNT 14.7 10^3/uL (4.0-10.0)
[2024-02-19 16:26] LABS: ERYTHROCYTE SEDIMENTATION RATE 46 mm/hr (0-20)
== END ==
LOC: M PLALAB 11:40
PROVIDERS: ATTEND Family Medicine
DX: K70.31 Alcoholic cirrhosis of liver with ascites (principal); Z79.899 Other long term (current) drug therapy

== ENCOUNTER 2024-02-21 17:43 | Inpatient (IN) | payer MEDICARE ==
[~2024-02-21] VITALS: Ht 170.2 cm; Wt 65.4 kg
[~2024-02-21 17:43] MED LIST changes: -B-1100TA2 PO; -B-12100T2 PO; -CARV3.12 PO; -CLOP75TA2 PO; -CONS10SO3 PO; -LEVO25TA5 PO; -LISI20TA33 PO; -PRAV20TA2 PO; -TRAV2.5D OU; -VITA200016 PO; -ZOLO100T PO
[2024-02-21 18:26] LABS: BASO # 0.1 10^3/uL (0.0-0.2); BASO % 0.4 % (0.0-1.0); EOS # 0.1 10^3/uL (0.0-0.5); EOS % 0.9 % (0.0-3.0); HEMATOCRIT 38.2 % (42.0-52.0); HEMOGLOBIN 13.7 g/dl (13.5-17.5); LYMPH # 1.4 10^3/uL (1.5-5.0); LYMPH % 9.6 % (24.0-44.0); MEAN CORPUSCULAR HEMOGLOBIN 32.2 pg (27.0-33.0); MEAN CORPUSCULAR HGB CONC 35.9 g/dl (32.0-36.5); MEAN CORPUSCULAR VOLUME 89.7 fl (80.0-96.0); MONO # 1.9 10^3/uL (0.0-0.8); MONO % 13.3 % (2.0-8.0); NEUTROPHILS # 10.7 10^3/uL (1.5-8.5); NEUTROPHILS % 75.3 % (36.0-66.0); PLATELET COUNT, AUTOMATED 262 10^3/uL (150-450); RED BLOOD COUNT 4.26 10^6/uL (4.30-6.10); WHITE BLOOD COUNT 14.2 10^3/uL (4.0-10.0)
[2024-02-21 18:50] LABS: ETHYL ALCOHOL (ETHANOL) 0.006 % (0.000-0.010)
[2024-02-21 18:52] LABS: SALICYLATE LEVEL < 3.0 MG/DL (<30)
[2024-02-21 18:57] LABS: ALBUMIN 2.1 G/DL (3.2-5.2); ALKALINE PHOSPHATASE 426 U/L (40-129); ALT/SGPT 142 U/L (7.0-40); AST/SGOT 229 U/L (<34); BILIRUBIN,DIRECT 2.4 MG/DL (<0.4); BILIRUBIN,TOTAL 3.6 MG/DL (0.3-1.2); BLOOD UREA NITROGEN 50 MG/DL (9-23); CALCIUM LEVEL 9.1 MG/DL (8.3-10.6); CARBON DIOXIDE LEVEL 25 MMOL/L (20-31); CHLORIDE LEVEL 95 MMOL/L (98-107); CREATININE FOR GFR 1.63 MG/DL (0.70-1.30); GLOMERULAR FILTRATION RATE 45.6 (>49); GLUCOSE, FASTING 106 MG/DL (74-106); POTASSIUM SERUM 5.7 MMOL/L (3.5-5.1); SODIUM LEVEL 128 MMOL/L (136-145); TOTAL PROTEIN 7.3 G/DL (5.7-8.2)
[2024-02-21 19:17] LABS: INR 1.46; PARTIAL THROMBOPLASTIN TIME 36.7 SECONDS (24.8-34.2)
[2024-02-21] MEDS: FUROSEMIDE 20MG/2ML VIAL IV ONE (20:05)
[2024-02-21] MEDS: LACTULOSE 20GM/30ML SYRUP UDC PO ONE (20:27)
[2024-02-21] MEDS ORDERED: PRAV20TA2 PO (22:19)
[2024-02-21] MEDS ORDERED: VITA200016 PO (22:19)
[2024-02-21] MEDS ORDERED: LISI20TA33 PO (22:19)
[2024-02-21] MEDS ORDERED: ZOLO100T PO (22:19)
[2024-02-21] MEDS ORDERED: LEVO25TA5 PO (22:19)
[2024-02-21] MEDS ORDERED: CONS10SO3 PO (22:19)
[2024-02-21] MEDS ORDERED: CLOP75TA2 PO (22:19)
[2024-02-21] MEDS ORDERED: TRAV2.5D OU (22:20)
[2024-02-21] MEDS ORDERED: B-1100TA2 PO (22:20)
[2024-02-21] MEDS ORDERED: B-12100T2 PO (22:20)
[2024-02-21] MEDS ORDERED: CARV3.12 PO (22:20)
[2024-02-21] MEDS ORDERED: HOME MED LIST COMPLETE! XX SCH (22:25)
[2024-02-22] MEDS: LACTULOSE 20GM/30ML SYRUP UDC PO SCH (00:41)
[2024-02-22] MEDS: cefTRIAXone SOD 2 GM in DEXTROSE 5% (D5W) ADV/MINI-BAG 50 ML IV SCH (00:41)
[2024-02-22] MEDS: CARVedilol 3.125 MG TAB PO SCH (00:41)
[2024-02-22] MEDS: PATIROMER SORBITEX CALCIUM 8.4 GM POWDER PACKET (VELTASSA) PO ONE (00:41)
[2024-02-22] MEDS: LEVOTHYROXINE 25MCG TABLET (0.025MG) PO SCH (06:06)
[2024-02-22 06:43] LABS: HEMOGLOBIN 13.2 g/dl (13.5-17.5); MEAN CORPUSCULAR HGB CONC 35.7 g/dl (32.0-36.5); MEAN CORPUSCULAR VOLUME 89.8 fl (80.0-96.0); PLATELET COUNT, AUTOMATED 213 10^3/uL (150-450); RED BLOOD COUNT 4.12 10^6/uL (4.30-6.10); WHITE BLOOD COUNT 15.7 10^3/uL (4.0-10.0)
[2024-02-22 07:20] LABS: ALBUMIN 1.9 G/DL (3.2-5.2); BILIRUBIN,TOTAL 3.2 MG/DL (0.3-1.2); CREATININE FOR GFR 1.71 MG/DL (0.70-1.30); GLOMERULAR FILTRATION RATE 43.1 (>49); MAGNESIUM LEVEL 2.3 MG/DL (1.8-2.4); POTASSIUM SERUM 5.5 MMOL/L (3.5-5.1); TOTAL PROTEIN 6.3 G/DL (5.7-8.2)
[2024-02-22 07:48] LABS: INR 1.53; PROTHROMBIN TIME 18.6 SECONDS (12.5-14.5)
[2024-02-22] MEDS: THIAMINE 100 MG TAB PO SCH (08:09)
[2024-02-22] MEDS: SERTRALINE 100 MG TAB PO SCH (08:09)
[2024-02-22] MEDS: CLOPIDOGREL 75 MG TAB PO SCH (08:09)
[2024-02-22] MEDS: FOLIC ACID 1MG TAB PO SCH (08:11)
[2024-02-22] MEDS: FUROSEMIDE 20MG/2ML VIAL IV ONE (08:12)
[2024-02-22] MEDS: FUROSEMIDE 40 MG TAB PO SCH (08:24)
[2024-02-22] MEDS: CYANOCOBALAMIN 250 MCG TABLET PO SCH (08:57)
[2024-02-22] MEDS ORDERED: SPIRONOLACTONE 50 MG TAB PO SCH (09:00)
[2024-02-22] MEDS ORDERED: ENTER DRUG NAME HERE (PATIENT'S OWN MED) PO SCH (09:00)
[2024-02-22] MEDS: rifAXIMin 550 MG TAB (XIFAXAN) PO SCH (09:00)
[2024-02-22 13:20] VITALS: BP 102/53; TEMP 98.8; O2SAT 99
[2024-02-22 13:44] LABS: APPEARANCE, BODY FLUID HAZY (CLEAR); ASCITES FL COLOR YELLOW (COLORLESS); SOURCE, BODY FLUID ASCITES
[2024-02-22 13:57] LABS: SOURCE, BODY FLUID ALBUMIN ASCITES
[2024-02-22 14:01] LABS: SOURCE, BODY FLUID GLUCOSE ASCITES
[2024-02-22 14:02] LABS: SOURCE, BODY FLUID TOT PROTEIN ASCITES; TOTAL PROTEIN, BODY FLUID < 2.0 G/DL (NOT ESTABLISHED)
[2024-02-22 15:30] VITALS: BP 109/61; TEMP 98.1; O2SAT 100
[2024-02-22 19:30] LABS: CALCIUM LEVEL 8.7 MG/DL (8.3-10.6); CREATININE FOR GFR 1.72 MG/DL (0.70-1.30); GLOMERULAR FILTRATION RATE 42.8 (>49); POTASSIUM SERUM 4.7 MMOL/L (3.5-5.1)
[2024-02-22 20:31] VITALS: BP 114/52; TEMP 97.7; O2SAT 97
[2024-02-22] MEDS: PRAVASTATIN 20 MG TAB PO SCH (22:46)
[2024-02-23 04:27] VITALS: BP_SYST 104; BP_SYST 95; BP_DIAS 45; BP_DIAS 50; TEMP 97.9; O2SAT 95
[2024-02-23 05:38] LABS: BASO % 0.3 % (0.0-1.0); EOS # 0.2 10^3/uL (0.0-0.5); EOS % 1.8 % (0.0-3.0); HEMATOCRIT 33.2 % (42.0-52.0); HEMOGLOBIN 11.9 g/dl (13.5-17.5); LYMPH # 1.3 10^3/uL (1.5-5.0); LYMPH % 13.5 % (24.0-44.0); MEAN CORPUSCULAR HGB CONC 35.8 g/dl (32.0-36.5); MEAN CORPUSCULAR VOLUME 89.2 fl (80.0-96.0); MONO # 1.2 10^3/uL (0.0-0.8); MONO % 12.9 % (2.0-8.0); NEUTROPHILS # 6.7 10^3/uL (1.5-8.5); NEUTROPHILS % 71.1 % (36.0-66.0); PLATELET COUNT, AUTOMATED 188 10^3/uL (150-450); RED BLOOD COUNT 3.72 10^6/uL (4.30-6.10); WHITE BLOOD COUNT 9.4 10^3/uL (4.0-10.0)
[2024-02-23 05:58] LABS: ALBUMIN 1.7 G/DL (3.2-5.2); BILIRUBIN,TOTAL 2.8 MG/DL (0.3-1.2); CALCIUM LEVEL 8.7 MG/DL (8.3-10.6); CREATININE FOR GFR 1.66 MG/DL (0.70-1.30); GLOMERULAR FILTRATION RATE 44.6 (>49); INR 1.54; POTASSIUM SERUM 4.6 MMOL/L (3.5-5.1); PROTHROMBIN TIME 18.8 SECONDS (12.5-14.5); TOTAL PROTEIN 5.8 G/DL (5.7-8.2)
[2024-02-23 12:15] VITALS: BP 97/51; TEMP 97.3; O2SAT 98
[2024-02-23] MEDS: SPIRONOLACTONE 50 MG TAB PO SCH (18:31)
[2024-02-23 20:03] VITALS: BP 107/59; TEMP 97.9; O2SAT 99
[2024-02-24] VITALS (9 sets, daily range): BP systolic 101–122; BP diastolic 54–61; TEMP 97.3–97.9; O2SAT 95–99
[2024-02-24 05:52] LABS: BASO # 0.1 10^3/uL (0.0-0.2); BASO % 0.4 % (0.0-1.0); EOS # 0.2 10^3/uL (0.0-0.5); EOS % 1.6 % (0.0-3.0); HEMATOCRIT 33.8 % (42.0-52.0); HEMOGLOBIN 12.3 g/dl (13.5-17.5); LYMPH # 1.3 10^3/uL (1.5-5.0); LYMPH % 10.2 % (24.0-44.0); MEAN CORPUSCULAR HEMOGLOBIN 32.3 pg (27.0-33.0); MEAN CORPUSCULAR HGB CONC 36.4 g/dl (32.0-36.5); MEAN CORPUSCULAR VOLUME 88.7 fl (80.0-96.0); MONO # 1.5 10^3/uL (0.0-0.8); MONO % 11.9 % (2.0-8.0); NEUTROPHILS # 9.4 10^3/uL (1.5-8.5); NEUTROPHILS % 75.3 % (36.0-66.0); PLATELET COUNT, AUTOMATED 213 10^3/uL (150-450); RED BLOOD COUNT 3.81 10^6/uL (4.30-6.10); WHITE BLOOD COUNT 12.4 10^3/uL (4.0-10.0)
[2024-02-24 06:04] LABS: INR 1.52; PROTHROMBIN TIME 18.6 SECONDS (12.5-14.5)
[2024-02-24 06:20] LABS: ALBUMIN 1.8 G/DL (3.2-5.2); BILIRUBIN,TOTAL 2.9 MG/DL (0.3-1.2); CREATININE FOR GFR 1.7 MG/DL (0.70-1.30); GLOMERULAR FILTRATION RATE 43.4 (>49); POTASSIUM SERUM 4.6 MMOL/L (3.5-5.1); TOTAL PROTEIN 6.1 G/DL (5.7-8.2)
[2024-02-25 00:28] VITALS: BP 112/57; TEMP 98.1; O2SAT 97
[2024-02-25 04:00] VITALS: BP 109/60; TEMP 97.3; O2SAT 96
[2024-02-25 06:02] LABS: BASO % 0.4 % (0.0-1.0); EOS # 0.2 10^3/uL (0.0-0.5); EOS % 1.8 % (0.0-3.0); HEMATOCRIT 30.7 % (42.0-52.0); MEAN CORPUSCULAR HEMOGLOBIN 32.4 pg (27.0-33.0); MEAN CORPUSCULAR HGB CONC 35.8 g/dl (32.0-36.5); MEAN CORPUSCULAR VOLUME 90.3 fl (80.0-96.0); MONO # 1.3 10^3/uL (0.0-0.8); MONO % 11.2 % (2.0-8.0); NEUTROPHILS # 8.8 10^3/uL (1.5-8.5); NEUTROPHILS % 77.2 % (36.0-66.0); PLATELET COUNT, AUTOMATED 160 10^3/uL (150-450); WHITE BLOOD COUNT 11.4 10^3/uL (4.0-10.0)
[2024-02-25 06:11] LABS: INR 1.72; PROTHROMBIN TIME 20.3 SECONDS (12.5-14.5)
[2024-02-25 06:31] LABS: ALBUMIN 2.4 G/DL (3.2-5.2); BILIRUBIN,TOTAL 3.5 MG/DL (0.3-1.2); CALCIUM LEVEL 9.2 MG/DL (8.3-10.6); CREATININE FOR GFR 1.5 MG/DL (0.70-1.30); GLOMERULAR FILTRATION RATE 50.2 (>49); POTASSIUM SERUM 3.9 MMOL/L (3.5-5.1); TOTAL PROTEIN 6.1 G/DL (5.7-8.2)
[2024-02-25 12:00] VITALS: BP 97/52; TEMP 97.7; O2SAT 98
[2024-02-25 21:23] VITALS: BP 94/47; TEMP 97.7; O2SAT 98
[2024-02-26 04:00] VITALS: BP 101/47; TEMP 98.1; O2SAT 96
[2024-02-26 06:04] LABS: BASO # 0.1 10^3/uL (0.0-0.2); BASO % 0.4 % (0.0-1.0); EOS # 0.3 10^3/uL (0.0-0.5); EOS % 1.9 % (0.0-3.0); HEMATOCRIT 33.4 % (42.0-52.0); HEMOGLOBIN 11.9 g/dl (13.5-17.5); LYMPH # 1.4 10^3/uL (1.5-5.0); LYMPH % 9.8 % (24.0-44.0); MEAN CORPUSCULAR HEMOGLOBIN 32.3 pg (27.0-33.0); MEAN CORPUSCULAR HGB CONC 35.6 g/dl (32.0-36.5); MEAN CORPUSCULAR VOLUME 90.8 fl (80.0-96.0); MONO # 1.5 10^3/uL (0.0-0.8); MONO % 10.7 % (2.0-8.0); NEUTROPHILS # 10.6 10^3/uL (1.5-8.5); NEUTROPHILS % 76.7 % (36.0-66.0); PLATELET COUNT, AUTOMATED 162 10^3/uL (150-450); RED BLOOD COUNT 3.68 10^6/uL (4.30-6.10); WHITE BLOOD COUNT 13.8 10^3/uL (4.0-10.0)
[2024-02-26 06:11] LABS: INR 1.61; PROTHROMBIN TIME 19.4 SECONDS (12.5-14.5)
[2024-02-26 06:22] LABS: ALBUMIN 2.4 G/DL (3.2-5.2); ALKALINE PHOSPHATASE 313 U/L (40-129); ALT/SGPT 109 U/L (7.0-40); AST/SGOT 159 U/L (<34); BLOOD UREA NITROGEN 37 MG/DL (9-23); CALCIUM LEVEL 9.2 MG/DL (8.3-10.6); CARBON DIOXIDE LEVEL 25 MMOL/L (20-31); CHLORIDE LEVEL 101 MMOL/L (98-107); CREATININE FOR GFR 1.25 MG/DL (0.70-1.30); GLOMERULAR FILTRATION RATE > 60.0 (>49); GLUCOSE, FASTING 93 MG/DL (74-106); POTASSIUM SERUM 4.3 MMOL/L (3.5-5.1); SODIUM LEVEL 133 MMOL/L (136-145); TOTAL PROTEIN 6.2 G/DL (5.7-8.2)
[2024-02-26 12:00] VITALS: BP 119/63; TEMP 97.7; O2SAT 97
[2024-02-26 20:00] VITALS: BP 87/59; TEMP 98.4; O2SAT 98
[2024-02-26 20:07] VITALS: BP 120/55
[2024-02-27 04:00] VITALS: BP 133/72; TEMP 97.9; O2SAT 98
[2024-02-27 06:30] LABS: INR 1.48; PROTHROMBIN TIME 18.2 SECONDS (12.5-14.5)
[2024-02-27 07:54] LABS: HEMATOCRIT 34.6 % (42.0-52.0); HEMOGLOBIN 12.1 g/dl (13.5-17.5); MEAN CORPUSCULAR HEMOGLOBIN 32.8 pg (27.0-33.0); MEAN CORPUSCULAR VOLUME 93.8 fl (80.0-96.0); PLATELET COUNT, AUTOMATED 147 10^3/uL (150-450); RED BLOOD COUNT 3.69 10^6/uL (4.30-6.10); WHITE BLOOD COUNT 14.8 10^3/uL (4.0-10.0)
[2024-02-27 08:20] LABS: BLOOD UREA NITROGEN 31 MG/DL (9-23); CALCIUM LEVEL 9.1 MG/DL (8.3-10.6); CARBON DIOXIDE LEVEL 24 MMOL/L (20-31); CHLORIDE LEVEL 99 MMOL/L (98-107); CREATININE FOR GFR 1.19 MG/DL (0.70-1.30); GLOMERULAR FILTRATION RATE > 60.0 (>49); GLUCOSE, FASTING 104 MG/DL (74-106); POTASSIUM SERUM 4.4 MMOL/L (3.5-5.1); SODIUM LEVEL 130 MMOL/L (136-145)
[2024-02-27 12:00] VITALS: BP 110/59; TEMP 97.5; O2SAT 95
[2024-02-27 18:11] LABS: PROCALCITONIN 0.31 ng/ml
[2024-02-27 18:12] LABS: ALBUMIN 2.5 G/DL (3.2-5.2); ALKALINE PHOSPHATASE 324 U/L (40-129); ALT/SGPT 118 U/L (7.0-40); AST/SGOT 170 U/L (<34); BILIRUBIN,DIRECT 2.8 MG/DL (<0.4); BILIRUBIN,TOTAL 4.1 MG/DL (0.3-1.2); TOTAL PROTEIN 6.8 G/DL (5.7-8.2)
[2024-02-27 20:00] VITALS: BP 112/50; TEMP 98.1; O2SAT 97
[2024-02-28 04:00] VITALS: BP 117/73; TEMP 97.9; O2SAT 98
[2024-02-28 06:04] LABS: INR 1.69; PROTHROMBIN TIME 20.1 SECONDS (12.5-14.5)
[2024-02-28 06:26] LABS: ALBUMIN 2.3 G/DL (3.2-5.2); ALKALINE PHOSPHATASE 314 U/L (40-129); ALT/SGPT 108 U/L (7.0-40); AST/SGOT 152 U/L (<34); BILIRUBIN,DIRECT 2.6 MG/DL (<0.4); BILIRUBIN,TOTAL 3.8 MG/DL (0.3-1.2); TOTAL PROTEIN 6.6 G/DL (5.7-8.2)
[2024-02-28 07:42] LABS: BLOOD UREA NITROGEN 27 MG/DL (9-23); CALCIUM LEVEL 9.2 MG/DL (8.3-10.6); CARBON DIOXIDE LEVEL 25 MMOL/L (20-31); CHLORIDE LEVEL 99 MMOL/L (98-107); CREATININE FOR GFR 1.24 MG/DL (0.70-1.30); GLOMERULAR FILTRATION RATE > 60.0 (>49); GLUCOSE, FASTING 119 MG/DL (74-106); POTASSIUM SERUM 4.2 MMOL/L (3.5-5.1); SODIUM LEVEL 132 MMOL/L (136-145)
[2024-02-28 07:44] LABS: HEMATOCRIT 35.3 % (42.0-52.0); HEMOGLOBIN 12.4 g/dl (13.5-17.5); MEAN CORPUSCULAR HEMOGLOBIN 32.5 pg (27.0-33.0); MEAN CORPUSCULAR HGB CONC 35.1 g/dl (32.0-36.5); MEAN CORPUSCULAR VOLUME 92.7 fl (80.0-96.0); PLATELET COUNT, AUTOMATED 178 10^3/uL (150-450); RED BLOOD COUNT 3.81 10^6/uL (4.30-6.10); WHITE BLOOD COUNT 15.2 10^3/uL (4.0-10.0)
[2024-02-28 12:00] VITALS: BP 138/71; TEMP 97.3; O2SAT 98
[2024-02-28 20:00] VITALS: BP 129/74; TEMP 97.6; O2SAT 94
[2024-02-29 04:00] VITALS: BP 123/72; TEMP 97.6; O2SAT 94
[2024-02-29 06:01] LABS: HEMATOCRIT 33.7 % (42.0-52.0); MEAN CORPUSCULAR HEMOGLOBIN 32.4 pg (27.0-33.0); MEAN CORPUSCULAR HGB CONC 35.6 g/dl (32.0-36.5); MEAN CORPUSCULAR VOLUME 91.1 fl (80.0-96.0); PLATELET COUNT, AUTOMATED 157 10^3/uL (150-450)
[2024-02-29 06:12] LABS: ALBUMIN 2.3 G/DL (3.2-5.2); ALKALINE PHOSPHATASE 294 U/L (40-129); ALT/SGPT 103 U/L (7.0-40); AST/SGOT 127 U/L (<34); BILIRUBIN,DIRECT 2.7 MG/DL (<0.4); BILIRUBIN,TOTAL 4.3 MG/DL (0.3-1.2); BLOOD UREA NITROGEN 25 MG/DL (9-23); CALCIUM LEVEL 9.1 MG/DL (8.3-10.6); CARBON DIOXIDE LEVEL 26 MMOL/L (20-31); CHLORIDE LEVEL 97 MMOL/L (98-107); CREATININE FOR GFR 1.23 MG/DL (0.70-1.30); GLOMERULAR FILTRATION RATE > 60.0 (>49); GLUCOSE, FASTING 106 MG/DL (74-106); POTASSIUM SERUM 4.2 MMOL/L (3.5-5.1); SODIUM LEVEL 130 MMOL/L (136-145); TOTAL PROTEIN 6.3 G/DL (5.7-8.2)
[2024-02-29 07:06] LABS: INR 1.66; PROTHROMBIN TIME 19.8 SECONDS (12.5-14.5)
[2024-02-29 12:00] VITALS: BP 123/71; TEMP 97.7; O2SAT 95
[2024-02-29 15:04] LABS: PROCALCITONIN 0.32 ng/ml
[2024-02-29 20:00] VITALS: BP 135/68; TEMP 97.5; O2SAT 98
[2024-03-01 04:21] VITALS: BP 112/55; TEMP 97.5; O2SAT 98
[2024-03-01 05:23] LABS: HEMATOCRIT 32.2 % (42.0-52.0); HEMOGLOBIN 11.7 g/dl (13.5-17.5); MEAN CORPUSCULAR HEMOGLOBIN 32.8 pg (27.0-33.0); MEAN CORPUSCULAR HGB CONC 36.3 g/dl (32.0-36.5); MEAN CORPUSCULAR VOLUME 90.2 fl (80.0-96.0); PLATELET COUNT, AUTOMATED 150 10^3/uL (150-450); RED BLOOD COUNT 3.57 10^6/uL (4.30-6.10); WHITE BLOOD COUNT 12.4 10^3/uL (4.0-10.0)
[2024-03-01 05:37] LABS: INR 1.84; PROTHROMBIN TIME 21.4 SECONDS (12.5-14.5)
[2024-03-01 05:46] LABS: ALBUMIN 2.1 G/DL (3.2-5.2); ALKALINE PHOSPHATASE 266 U/L (40-129); ALT/SGPT 89 U/L (7.0-40); AST/SGOT 110 U/L (<34); BILIRUBIN,DIRECT 2.5 MG/DL (<0.4); BILIRUBIN,TOTAL 4.8 MG/DL (0.3-1.2); BLOOD UREA NITROGEN 26 MG/DL (9-23); CALCIUM LEVEL 8.7 MG/DL (8.3-10.6); CARBON DIOXIDE LEVEL 24 MMOL/L (20-31); CHLORIDE LEVEL 100 MMOL/L (98-107); CREATININE FOR GFR 1.12 MG/DL (0.70-1.30); GLOMERULAR FILTRATION RATE > 60.0 (>49); GLUCOSE, FASTING 107 MG/DL (74-106); POTASSIUM SERUM 3.9 MMOL/L (3.5-5.1); SODIUM LEVEL 131 MMOL/L (136-145); TOTAL PROTEIN 6.1 G/DL (5.7-8.2)
[2024-03-01] MEDS ORDERED: CIPROFLOXACIN 0.3% OPHTH SOLN 2.5ML OD SCH (09:00)
[2024-03-01 09:47] VITALS: BP 121/64
[2024-03-01] MEDS: POLYTRIM OPTH DROPS 10ML OD SCH (10:28)
[2024-03-01 12:00] VITALS: BP 118/61; TEMP 97.3; O2SAT 98
[2024-03-01] MEDS ORDERED: POLYOPSO OD (16:50)
[2024-03-01] MEDS ORDERED: LACT20EL PO (16:50)
[2024-03-01] MEDS ORDERED: ALDA50TA2 PO (16:50)
[2024-03-01] MEDS ORDERED: XIFA550T PO (16:50)
[2024-03-01] MEDS ORDERED: FURO40TA2 PO (16:50)
[2024-03-01] MEDS ORDERED: FOLI1TAB11 PO (16:50)
== END 2024-03-01 18:10 | disposition home or self-care (01) | DRG 433 ==
LOC: EDBD 17:43 → M ED 17:43 → M ED INP 23:11 → EEVIPCON 23:11 → M MSPAV 02-22 15:26
PROVIDERS: ADMIT Family Medicine; ATTEND Student in an Organized Health Care Education/Training Program
PROC: 0W9G3ZZ Drainage of Peritoneal Cavity, Percutaneous Approach (ICD-10-PCS; principal; 2024-02-22 12:00)
PROC: 0W9G3ZZ Drainage of Peritoneal Cavity, Percutaneous Approach (ICD-10-PCS; 2024-02-29)
DX: K70.31 Alcoholic cirrhosis of liver with ascites (principal); N17.9 Acute kidney failure, unspecified; K76.6 Portal hypertension; I50.32 Chronic diastolic (congestive) heart failure; E87.1 Hypo-osmolality and hyponatremia; I13.0 Hypertensive heart and chronic kidney disease with heart failure and stage 1 through stage 4 chronic kidney disease, or unspecified chronic kidney disease; Z79.899 Other long term (current) drug therapy; G44.209 Tension-type headache, unspecified, not intractable; R73.01 Impaired fasting glucose; E53.8 Deficiency of other specified B group vitamins; E03.9 Hypothyroidism, unspecified; M47.816 Spondylosis without myelopathy or radiculopathy, lumbar region; E55.9 Vitamin D deficiency, unspecified; F32.9 Major depressive disorder, single episode, unspecified; E78.2 Mixed hyperlipidemia; E66.3 Overweight; K59.09 Other constipation; F12.10 Cannabis abuse, uncomplicated; Z80.0 Family history of malignant neoplasm of digestive organs; Z66 Do not resuscitate; K76.82 Hepatic encephalopathy; K70.40 Alcoholic hepatic failure without coma; E87.5 Hyperkalemia; N18.9 Chronic kidney disease, unspecified; E78.5 Hyperlipidemia, unspecified; G25.3 Myoclonus; R27.8 Other lack of coordination; R74.01 Elevation of levels of liver transaminase levels; H10.9 Unspecified conjunctivitis

== ENCOUNTER → 2024-03-07 | Outpatient (CLI) | payer MEDICARE ==
[~2024-03-07] MED LIST changes: +ALDA50TA2 PO; +B-1100TA2 PO; +B-12100T2 PO; +CARV3.12 PO; +CLOP75TA2 PO; +CONS10SO3 PO; +FOLI1TAB11 PO; +FURO40TA2 PO; +LACT20EL PO; +LEVO25TA5 PO; +LISI20TA33 PO; +POLYOPSO OD; +PRAV20TA2 PO; +TRAV2.5D OU; +VITA200016 PO; +XIFA550T PO; +ZOLO100T PO
[2024-03-07 13:25] VITALS: TEMP 97.2
[2024-03-07 14:30] VITALS: BP 113/58; O2SAT 100
== END ==
LOC: M IRPRO 13:14
DX: K70.31 Alcoholic cirrhosis of liver with ascites (principal)

== ENCOUNTER → 2024-03-21 | Outpatient (CLI) | payer MEDICARE ==
[~2024-03-21] MED LIST changes: +PANT40TA29 PO; +TRAM50TA2 PO
[2024-03-21 14:26] LABS: BASO # 0.1 10^3/uL (0.0-0.2); BASO % 0.5 % (0.0-1.0); EOS # 0.1 10^3/uL (0.0-0.5); EOS % 0.3 % (0.0-3.0); HEMATOCRIT 38.3 % (42.0-52.0); HEMOGLOBIN 13.3 g/dl (13.5-17.5); MEAN CORPUSCULAR HEMOGLOBIN 33.2 pg (27.0-33.0); MEAN CORPUSCULAR HGB CONC 34.7 g/dl (32.0-36.5); MEAN CORPUSCULAR VOLUME 95.5 fl (80.0-96.0); MONO # 1.7 10^3/uL (0.0-0.8); MONO % 10.1 % (2.0-8.0); NEUTROPHILS # 13.8 10^3/uL (1.5-8.5); NEUTROPHILS % 82.3 % (36.0-66.0); PLATELET COUNT, AUTOMATED 265 10^3/uL (150-450); RED BLOOD COUNT 4.01 10^6/uL (4.30-6.10); WHITE BLOOD COUNT 16.8 10^3/uL (4.0-10.0)
[2024-03-21 14:31] LABS: C REACTIVE PROTEIN QUANTITATIV 5.25 MG/DL (<1.0); TOTAL IRON BINDING CAPACITY 184 UG/DL (250-425)
[2024-03-21 14:32] LABS: ERYTHROCYTE SEDIMENTATION RATE > 130 mm/hr (0-20); IRON (FE) 78 UG/DL (65-175); PERCENT SATURATION 42.4 % (19.7-50.0)
[2024-03-21 14:44] LABS: ALBUMIN 2.4 G/DL (3.2-5.2); ALKALINE PHOSPHATASE 442 U/L (40-129); ALT/SGPT 118 U/L (7.0-40); AST/SGOT 185 U/L (<34); BILIRUBIN,TOTAL 3.8 MG/DL (0.3-1.2); BLOOD UREA NITROGEN 28 MG/DL (9-23); CALCIUM LEVEL 10.1 MG/DL (8.3-10.6); CARBON DIOXIDE LEVEL 23 MMOL/L (20-31); CHLORIDE LEVEL 99 MMOL/L (98-107); CREATININE FOR GFR 1.15 MG/DL (0.70-1.30); FREE T4 1.04 NG/DL (0.89-1.76); GLOMERULAR FILTRATION RATE > 60.0 (>49); GLUCOSE, FASTING 136 MG/DL (74-106); SODIUM LEVEL 133 MMOL/L (136-145); THYROID STIMULATING HORMONE 12.597 uIU/ML (0.55-4.78); TOTAL PROTEIN 8.6 G/DL (5.7-8.2)
[2024-03-21 16:31] LABS: OSMOLALITY SERUM 296 MOSM/KG (280-301)
== END ==
LOC: M PLALAB 10:07
PROVIDERS: ATTEND Family Medicine
DX: K70.31 Alcoholic cirrhosis of liver with ascites (principal); Z79.899 Other long term (current) drug therapy

== ENCOUNTER 2024-03-25 13:28 | Inpatient (IN) | payer MEDICARE ==
[2024-03-25] VITALS (46 sets, daily range): BP systolic 56–124; BP diastolic 36–67; TEMP 94.9–98.1; O2SAT 91–100
[~2024-03-25] VITALS: Ht 170.2 cm; Wt 66.3 kg
[2024-03-25] MEDS: CLOPIDOGREL 75 MG TAB PO SCH (09:00)
[~2024-03-25 13:28] MED LIST changes: -PANT40TA29 PO; -TRAM50TA2 PO
[2024-03-25] MEDS: NS 500 ML IV ONE (14:09)
[2024-03-25 14:14] LABS: BASO % 0.2 % (0.0-1.0); EOS # 0.1 10^3/uL (0.0-0.5); EOS % 0.6 % (0.0-3.0); HEMATOCRIT 32.3 % (42.0-52.0); HEMOGLOBIN 11.5 g/dl (13.5-17.5); LYMPH # 0.9 10^3/uL (1.5-5.0); LYMPH % 6.6 % (24.0-44.0); MEAN CORPUSCULAR HEMOGLOBIN 33.1 pg (27.0-33.0); MEAN CORPUSCULAR HGB CONC 35.6 g/dl (32.0-36.5); MEAN CORPUSCULAR VOLUME 93.1 fl (80.0-96.0); MONO # 1.2 10^3/uL (0.0-0.8); MONO % 8.9 % (2.0-8.0); NEUTROPHILS # 11.5 10^3/uL (1.5-8.5); NEUTROPHILS % 82.6 % (36.0-66.0); PLATELET COUNT, AUTOMATED 214 10^3/uL (150-450); RED BLOOD COUNT 3.47 10^6/uL (4.30-6.10); WHITE BLOOD COUNT 13.9 10^3/uL (4.0-10.0)
[2024-03-25 14:31] LABS: INR 1.43; PROTHROMBIN TIME 17.7 SECONDS (12.5-14.5)
[2024-03-25 14:38] LABS: ETHYL ALCOHOL (ETHANOL) 0.004 % (0.000-0.010)
[2024-03-25 14:41] LABS: THYROID STIMULATING HORMONE 7.74 uIU/ML (0.55-4.78)
[2024-03-25 14:43] LABS: ALBUMIN 1.8 G/DL (3.2-5.2); BILIRUBIN,DIRECT 2.2 MG/DL (<0.4); BILIRUBIN,TOTAL 3.2 MG/DL (0.3-1.2); CALCIUM LEVEL 8.1 MG/DL (8.3-10.6); CREATININE FOR GFR 3.13 MG/DL (0.70-1.30); GLOMERULAR FILTRATION RATE 21.5 (>49); POTASSIUM SERUM 4.5 MMOL/L (3.5-5.1); TOTAL PROTEIN 6.5 G/DL (5.7-8.2)
[2024-03-25] MEDS: NS (Normal Saline) 0.9% 1,000 ML IV ONE (14:48)
[2024-03-25 15:08] LABS: KETONE, URINE AUTO RFX NEGATIVE (NEGATIVE); MUCUS, URINE RFX SMALL (NEGATIVE); NITRITE, URINE AUTO RFX NEGATIVE (NEGATIVE); RBC, URINE AUTO RFX TNTC /HPF (0-3); SQUAM EPITHELIAL CELL UR AURFX 0 /HPF (0-6)
[2024-03-25] MEDS ORDERED: ALDA50TA2 PO (15:23)
[2024-03-25] MEDS ORDERED: XIFA550T PO (15:23)
[2024-03-25] MEDS ORDERED: PANT40TA29 PO (15:23)
[2024-03-25] MEDS ORDERED: FURO40TA2 PO (15:23)
[2024-03-25] MEDS ORDERED: LACT20EL PO (15:23)
[2024-03-25] MEDS ORDERED: FOLI1TAB11 PO (15:23)
[2024-03-25] MEDS ORDERED: TRAM50TA2 PO (15:23)
[2024-03-25] MEDS ORDERED: HOME MED LIST COMPLETE! XX SCH (15:25)
[2024-03-25 15:32] LABS: LEUKOCYTE ESTERASE UR AUTO RFX 2+ (NEGATIVE); WBC, URINE AUTO RFX TNTC /HPF (0-3)
[2024-03-25] MEDS: NS 0.9% IV ONE (15:32)
[2024-03-25] MEDS: [UNRECOGNIZED DRUG - OTHER] IV ONE (15:32)
[2024-03-25] MEDS: CEFEPIME HCL 2 GM in DEXTROSE 5% (D5W) ADV/MINI-BAG 50 ML IV ONE (15:32)
[2024-03-25] MEDS ORDERED: LACTULOSE 20GM/30ML SYRUP UDC PO PRN (15:40)
[2024-03-25] MEDS: LACTULOSE 20GM/30ML SYRUP UDC PR ONE (15:47)
[2024-03-25] MEDS ORDERED: SODIUM CHLORIDE NASAL 0.65% SPRAY BTL (OCEAN) PRN (16:45)
[2024-03-25 16:52] LABS: FREE T4 0.92 NG/DL (0.89-1.76)
[2024-03-25] MEDS: MIDODRINE 5 MG TAB PO SCH (16:58)
[2024-03-25] MEDS: PIPERACILLIN/TAZOBACTAM SOD 4.5 GM in DEXTROSE 5% (D5W) ADV/MINI-BAG 50 ML IV SCH (17:59)
[2024-03-25] MEDS ORDERED: PIPERACILLIN/TAZOBACTAM SOD 3.375 GM in DEXTROSE 5% (D5W) ADV/MINI-BAG 50 ML IV SCH (18:00)
[2024-03-25] MEDS: OCTREOTIDE ACETATE 100MCG/ML VIAL **SC ADMINISTRATION ONLY SC SCH (18:00)
[2024-03-25] MEDS: LACTULOSE 20GM/30ML SYRUP UDC PO SCH (18:00)
[2024-03-25] MEDS: NOREPINEPHRINE 4MG IN D5 250ML 4 MG in IV 1 EA IV SCH (20:14)
[2024-03-25] MEDS ORDERED: VASOPRESSIN IN 0.9 % NACL 20 UNIT in IV 1 EA IV SCH (22:25)
[2024-03-25] MEDS: PRAVASTATIN 20 MG TAB PO SCH (22:39)
[2024-03-25] MEDS: PANTOPRAZOLE 40MG VIAL IV ONE (22:39)
[2024-03-25] MEDS: VASOPRESSIN IN 0.9 % NACL 20 UNIT in IV 1 EA IV SCH (22:39)
[2024-03-25] MEDS: rifAXIMin 550 MG TAB (XIFAXAN) PO SCH (22:40)
[2024-03-25] MEDS: HYDROCORTISONE 100MG/2ML VIAL IV SCH (23:23)
[2024-03-26] VITALS (104 sets, daily range): BP systolic 72–131; BP diastolic 41–78; TEMP 97.7–99; O2SAT 89–100
[2024-03-26 00:19] LABS: HEMATOCRIT 30.5 % (42.0-52.0); HEMOGLOBIN 10.9 g/dl (13.5-17.5); MEAN CORPUSCULAR HEMOGLOBIN 33.1 pg (27.0-33.0); MEAN CORPUSCULAR HGB CONC 35.7 g/dl (32.0-36.5); MEAN CORPUSCULAR VOLUME 92.7 fl (80.0-96.0); PLATELET COUNT, AUTOMATED 237 10^3/uL (150-450); RED BLOOD COUNT 3.29 10^6/uL (4.30-6.10); WHITE BLOOD COUNT 16.1 10^3/uL (4.0-10.0)
[2024-03-26 04:29] LABS: CENTRAL VEN BASE EXCESS -9.6
[2024-03-26 04:36] LABS: HEMATOCRIT 27.9 % (42.0-52.0); HEMOGLOBIN 9.8 g/dl (13.5-17.5); MEAN CORPUSCULAR HEMOGLOBIN 32.6 pg (27.0-33.0); MEAN CORPUSCULAR HGB CONC 35.1 g/dl (32.0-36.5); MEAN CORPUSCULAR VOLUME 92.7 fl (80.0-96.0); PLATELET COUNT, AUTOMATED 168 10^3/uL (150-450); RED BLOOD COUNT 3.01 10^6/uL (4.30-6.10); WHITE BLOOD COUNT 14.5 10^3/uL (4.0-10.0)
[2024-03-26] MEDS: LIDOCAINE 2% 5ML JELLY UROJET TOP ONE (04:57)
[2024-03-26 05:12] LABS: ALBUMIN 2.5 G/DL (3.2-5.2); BILIRUBIN,TOTAL 3.7 MG/DL (0.3-1.2); CALCIUM LEVEL 7.9 MG/DL (8.3-10.6); CREATININE FOR GFR 2.9 MG/DL (0.70-1.30); GLOMERULAR FILTRATION RATE 23.4 (>49); POTASSIUM SERUM 4.8 MMOL/L (3.5-5.1); TOTAL PROTEIN 6.3 G/DL (5.7-8.2)
[2024-03-26] MEDS: LEVOTHYROXINE 25MCG TABLET (0.025MG) PO SCH (06:00)
[2024-03-26] MEDS ORDERED: PANTOPRAZOLE 40MG TAB (PROTONIX) PO SCH (09:00)
[2024-03-26] MEDS: THIAMINE 100 MG TAB PO SCH (09:45)
[2024-03-26] MEDS: PANTOPRAZOLE 40MG VIAL IV SCH (09:45)
[2024-03-26] MEDS: FOLIC ACID 1MG TAB PO SCH (09:46)
[2024-03-26] MEDS: LACTULOSE 20GM/30ML SYRUP UDC NG SCH (09:46)
[2024-03-26 10:09] LABS: ABG BASE EXCESS -8.2 (-2.0-2.0); ABG HCO3 14.9 MMOL/L (22.0-26.0); ABG O2 SATURATION 97.1 % (95.0-99.0); ABG PARTIAL PRESSURE CO2 24.2 mmHg (35.0-45.0); ABG STANDARD HCO3 17.8 MMOL/L. (22.0-26.0); ABG TOTAL CO2 15.7 MMOL/L (23.0-31.0); ABG pH (ARTERIAL) 7.408 UNITS (7.350-7.450)
[2024-03-26] MEDS: OCTREOTIDE ACETATE 100MCG/ML VIAL **IV ADMINISTRATION ONLY IV SCH (14:58)
[2024-03-26] MEDS: SODIUM BICARBONATE 150 MEQ in STERILE WATER LITER BAG 1,000 ML IV SCH (16:22)
[2024-03-27] VITALS (88 sets, daily range): BP systolic 77–111; BP diastolic 40–65; TEMP 97.4–99.1; O2SAT 88–100
[2024-03-27 04:16] LABS: BASO % 0.1 % (0.0-1.0); HEMATOCRIT 23.3 % (42.0-52.0); HEMOGLOBIN 8.5 g/dl (13.5-17.5); LYMPH # 0.6 10^3/uL (1.5-5.0); LYMPH % 5.9 % (24.0-44.0); MEAN CORPUSCULAR HEMOGLOBIN 33.3 pg (27.0-33.0); MEAN CORPUSCULAR HGB CONC 36.5 g/dl (32.0-36.5); MEAN CORPUSCULAR VOLUME 91.4 fl (80.0-96.0); MONO # 0.8 10^3/uL (0.0-0.8); MONO % 8.5 % (2.0-8.0); NEUTROPHILS # 7.9 10^3/uL (1.5-8.5); PLATELET COUNT, AUTOMATED 109 10^3/uL (150-450); RED BLOOD COUNT 2.55 10^6/uL (4.30-6.10); WHITE BLOOD COUNT 9.3 10^3/uL (4.0-10.0)
[2024-03-27 04:28] LABS: INR 1.96; PROTHROMBIN TIME 22.5 SECONDS (12.5-14.5)
[2024-03-27 05:02] LABS: ALBUMIN 2.8 G/DL (3.2-5.2); CALCIUM LEVEL 8.6 MG/DL (8.3-10.6); CREATININE FOR GFR 2.53 MG/DL (0.70-1.30); GLOMERULAR FILTRATION RATE 27.4 (>49); MAGNESIUM LEVEL 1.8 MG/DL (1.8-2.4); PHOSPHORUS LEVEL 4.2 MG/DL (2.4-5.1); POTASSIUM SERUM 3.8 MMOL/L (3.5-5.1); TOTAL PROTEIN 6.5 G/DL (5.7-8.2)
[2024-03-27] MEDS: MIDODRINE 5 MG TAB NG SCH (12:00)
[2024-03-27] MEDS: cefTRIAXone SOD 2 GM in DEXTROSE 5% (D5W) ADV/MINI-BAG 50 ML IV SCH (16:48)
[2024-03-28] VITALS (79 sets, daily range): BP systolic 75–126; BP diastolic 47–73; TEMP 97–98.5; O2SAT 88–98
[2024-03-28 06:27] LABS: HEMATOCRIT 22.5 % (42.0-52.0); HEMOGLOBIN 8.1 g/dl (13.5-17.5); LYMPH # 0.4 10^3/uL (1.5-5.0); LYMPH % 6.2 % (24.0-44.0); MEAN CORPUSCULAR HEMOGLOBIN 32.9 pg (27.0-33.0); MEAN CORPUSCULAR VOLUME 91.5 fl (80.0-96.0); MONO # 0.7 10^3/uL (0.0-0.8); MONO % 10.7 % (2.0-8.0); NEUTROPHILS # 5.7 10^3/uL (1.5-8.5); NEUTROPHILS % 82.7 % (36.0-66.0); PLATELET COUNT, AUTOMATED 107 10^3/uL (150-450); RED BLOOD COUNT 2.46 10^6/uL (4.30-6.10); WHITE BLOOD COUNT 6.9 10^3/uL (4.0-10.0)
[2024-03-28 06:37] LABS: INR 2.11; PHOSPHORUS LEVEL 3.9 MG/DL (2.4-5.1); PROTHROMBIN TIME 23.8 SECONDS (12.5-14.5)
[2024-03-28 06:45] LABS: ALBUMIN 2.7 G/DL (3.2-5.2); BILIRUBIN,TOTAL 2.8 MG/DL (0.3-1.2); CALCIUM LEVEL 8.5 MG/DL (8.3-10.6); CREATININE FOR GFR 2.21 MG/DL (0.70-1.30); GLOMERULAR FILTRATION RATE 32.1 (>49); POTASSIUM SERUM 2.6 MMOL/L (3.5-5.1); TOTAL PROTEIN 6.2 G/DL (5.7-8.2)
[2024-03-28] MEDS: KCL 10MEQ/100ML SWI (KRUN) 10 MEQ in IV 1 EA IV SCH (07:49)
[2024-03-28] MEDS ORDERED: KCL 20MEQ IN 100ML SWI (KRUN) 20 MEQ in IV 1 EA IV SCH (08:00)
[2024-03-28] MEDS: MIDODRINE 5 MG TAB NG SCH (09:20)
[2024-03-28] MEDS: POTASSIUM CHLORIDE 10% LIQ 20MEQ/15ML UDC PO ONE (09:22)
[2024-03-28] MEDS: LR 1,000 ML IV SCH (09:44)
[2024-03-28] MEDS ORDERED: MAG SULF 1GM/100ML (MAG RUN) 1 GM in IV 1 EA IV SCH (10:00)
[2024-03-28] MEDS ORDERED: POTASSIUM PHOSPHATE INJ 30 MMOL in D5W 500 ML IV ONE (12:00)
[2024-03-28] MEDS: LACTATED RINGER'S 1000 ML IV ONE (13:16)
[2024-03-28] MEDS: POTASSIUM CHLORIDE 10MEQ SR TABLET PO ONE (18:23)
[2024-03-28] MEDS: HYDROCORTISONE 100MG/2ML VIAL IV SCH (20:08)
[2024-03-29] VITALS: BP 94/52; TEMP 97.2; O2SAT 96
[2024-03-29 04:00] VITALS: BP 93/51; TEMP 97.4; O2SAT 92
[2024-03-29 04:53] LABS: BASO % 0.1 % (0.0-1.0); EOS % 0.1 % (0.0-3.0); HEMATOCRIT 25.1 % (42.0-52.0); HEMOGLOBIN 8.8 g/dl (13.5-17.5); LYMPH # 0.5 10^3/uL (1.5-5.0); LYMPH % 4.5 % (24.0-44.0); MEAN CORPUSCULAR HEMOGLOBIN 32.8 pg (27.0-33.0); MEAN CORPUSCULAR HGB CONC 35.1 g/dl (32.0-36.5); MEAN CORPUSCULAR VOLUME 93.7 fl (80.0-96.0); MONO % 9.2 % (2.0-8.0); NEUTROPHILS # 8.8 10^3/uL (1.5-8.5); NEUTROPHILS % 85.6 % (36.0-66.0); PLATELET COUNT, AUTOMATED 111 10^3/uL (150-450); RED BLOOD COUNT 2.68 10^6/uL (4.30-6.10); WHITE BLOOD COUNT 10.3 10^3/uL (4.0-10.0)
[2024-03-29 05:04] LABS: INR 2.23; PROTHROMBIN TIME 24.8 SECONDS (12.5-14.5)
[2024-03-29 05:16] LABS: ALBUMIN 2.9 G/DL (3.2-5.2); BILIRUBIN,DIRECT 1.7 MG/DL (<0.4); BILIRUBIN,TOTAL 2.5 MG/DL (0.3-1.2); CALCIUM LEVEL 8.6 MG/DL (8.3-10.6); CREATININE FOR GFR 1.85 MG/DL (0.70-1.30); GLOMERULAR FILTRATION RATE 39.4 (>49); PHOSPHORUS LEVEL 3.3 MG/DL (2.4-5.1); POTASSIUM SERUM 3.5 MMOL/L (3.5-5.1); TOTAL PROTEIN 6.4 G/DL (5.7-8.2)
[2024-03-29 07:51] LABS: C REACTIVE PROTEIN QUANTITATIV 3.29 MG/DL (<1.0)
[2024-03-29 07:52] LABS: ERYTHROCYTE SEDIMENTATION RATE 22 mm/hr (0-20)
[2024-03-29 08:00] VITALS: BP 103/55; TEMP 98.5; O2SAT 95
[2024-03-29 08:05] LABS: PROCALCITONIN 0.22 ng/ml
[2024-03-29] MEDS: SERTRALINE 100 MG TAB PO SCH (08:29)
[2024-03-29 12:00] VITALS: BP 112/62; TEMP 97.1; O2SAT 91
[2024-03-29 16:00] VITALS: BP 102/56; TEMP 97.4; O2SAT 92
[2024-03-29] MEDS: OCTREOTIDE ACETATE 100MCG/ML VIAL **IV ADMINISTRATION ONLY IV SCH (18:16)
[2024-03-29 20:00] VITALS: BP 118/60; TEMP 97.2; O2SAT 93
[2024-03-30] VITALS: BP 137/67; TEMP 97.3; O2SAT 95
[2024-03-30 04:00] VITALS: BP 128/64; TEMP 97.6; O2SAT 99
[2024-03-30 04:58] LABS: BASO % 0.1 % (0.0-1.0); EOS % 0.2 % (0.0-3.0); HEMATOCRIT 26.9 % (42.0-52.0); HEMOGLOBIN 9.4 g/dl (13.5-17.5); LYMPH # 0.4 10^3/uL (1.5-5.0); LYMPH % 3.5 % (24.0-44.0); MEAN CORPUSCULAR HEMOGLOBIN 33.2 pg (27.0-33.0); MEAN CORPUSCULAR HGB CONC 34.9 g/dl (32.0-36.5); MEAN CORPUSCULAR VOLUME 95.1 fl (80.0-96.0); MONO % 8.2 % (2.0-8.0); NEUTROPHILS # 10.6 10^3/uL (1.5-8.5); NEUTROPHILS % 86.9 % (36.0-66.0); PLATELET COUNT, AUTOMATED 101 10^3/uL (150-450); RED BLOOD COUNT 2.83 10^6/uL (4.30-6.10); WHITE BLOOD COUNT 12.1 10^3/uL (4.0-10.0)
[2024-03-30 05:06] LABS: INR 1.99; PROTHROMBIN TIME 22.7 SECONDS (12.5-14.5)
[2024-03-30 05:20] LABS: ALBUMIN 2.6 G/DL (3.2-5.2); BILIRUBIN,DIRECT 1.7 MG/DL (<0.4); BILIRUBIN,TOTAL 2.4 MG/DL (0.3-1.2); CALCIUM LEVEL 8.7 MG/DL (8.3-10.6); CREATININE FOR GFR 1.48 MG/DL (0.70-1.30); GLOMERULAR FILTRATION RATE 50.9 (>49); MAGNESIUM LEVEL 2.1 MG/DL (1.8-2.4); PHOSPHORUS LEVEL 2.8 MG/DL (2.4-5.1); TOTAL PROTEIN 6.2 G/DL (5.7-8.2)
[2024-03-30] MEDS: KCL 20MEQ IN 100ML SWI (KRUN) 20 MEQ in IV 1 EA IV SCH (05:58)
[2024-03-30 08:00] VITALS: BP 109/58; TEMP 97; O2SAT 94
[2024-03-30] MEDS ORDERED: KCL 20MEQ IN 100ML SWI (KRUN) 20 MEQ in IV 1 EA IV SCH (08:00)
[2024-03-30 12:00] VITALS: BP 126/68; TEMP 97.2; O2SAT 94
[2024-03-30 16:00] VITALS: BP 129/70; TEMP 96.9; O2SAT 95
[2024-03-30 20:00] VITALS: BP 137/71; TEMP 96.6; O2SAT 97
[2024-03-31] VITALS (17 sets, daily range): BP systolic 114–195; BP diastolic 51–93; TEMP 96.5–97.7; O2SAT 92–99
[2024-03-31 04:45] LABS: BASO % 0.1 % (0.0-1.0); EOS # 0.2 10^3/uL (0.0-0.5); EOS % 1.1 % (0.0-3.0); HEMATOCRIT 30.2 % (42.0-52.0); HEMOGLOBIN 10.6 g/dl (13.5-17.5); LYMPH # 0.6 10^3/uL (1.5-5.0); MEAN CORPUSCULAR HEMOGLOBIN 33.4 pg (27.0-33.0); MEAN CORPUSCULAR HGB CONC 35.1 g/dl (32.0-36.5); MEAN CORPUSCULAR VOLUME 95.3 fl (80.0-96.0); MONO % 6.8 % (2.0-8.0); NEUTROPHILS # 12.7 10^3/uL (1.5-8.5); NEUTROPHILS % 87.3 % (36.0-66.0); RED BLOOD COUNT 3.17 10^6/uL (4.30-6.10); WHITE BLOOD COUNT 14.5 10^3/uL (4.0-10.0)
[2024-03-31 05:02] LABS: INR 2.11; PROTHROMBIN TIME 23.7 SECONDS (12.5-14.5)
[2024-03-31 05:03] LABS: PLATELET COUNT, AUTOMATED 95 10^3/uL (150-450)
[2024-03-31 05:16] LABS: ALBUMIN 2.4 G/DL (3.2-5.2); ALKALINE PHOSPHATASE 197 U/L (40-129); ALT/SGPT 106 U/L (7.0-40); AST/SGOT 184 U/L (<34); BILIRUBIN,TOTAL 3.1 MG/DL (0.3-1.2); BLOOD UREA NITROGEN 37 MG/DL (9-23); CALCIUM LEVEL 8.7 MG/DL (8.3-10.6); CARBON DIOXIDE LEVEL 29 MMOL/L (20-31); CHLORIDE LEVEL 109 MMOL/L (98-107); CREATININE FOR GFR 1.23 MG/DL (0.70-1.30); GLOMERULAR FILTRATION RATE > 60.0 (>49); GLUCOSE, FASTING 122 MG/DL (74-106); PHOSPHORUS LEVEL 2.3 MG/DL (2.4-5.1); POTASSIUM SERUM 3.1 MMOL/L (3.5-5.1); SODIUM LEVEL 145 MMOL/L (136-145); TOTAL PROTEIN 5.9 G/DL (5.7-8.2)
[2024-03-31] MEDS: KCL 20MEQ IN 100ML SWI (KRUN) 20 MEQ in IV 1 EA IV SCH (05:57)
[2024-03-31] MEDS: MIDODRINE 5 MG TAB NG SCH (07:30)
[2024-03-31] MEDS: POTASSIUM CHLORIDE 10% LIQ 20MEQ/15ML UDC PO SCH (08:31)
[2024-03-31] MEDS ORDERED: POTASSIUM CHLORIDE 10% LIQ 20MEQ/15ML UDC PO SCH (09:00)
[2024-03-31] MEDS: CLOPIDOGREL 75 MG TAB PO SCH (12:38)
[2024-03-31 13:02] LABS: C REACTIVE PROTEIN QUANTITATIV 2.41 MG/DL (<1.0)
[2024-03-31 13:09] LABS: PROCALCITONIN 0.22 ng/ml
[2024-03-31 13:28] LABS: ERYTHROCYTE SEDIMENTATION RATE 26 mm/hr (0-20)
[2024-03-31 15:52] LABS: SOURCE, BODY FLUID GLUCOSE ASCITES
[2024-03-31 15:53] LABS: SOURCE, BODY FLUID LIPASE ASCITES; SOURCE, BODY FLUID TOT PROTEIN ASCITES; SOURCE, BODY FLUID TRIG ASCITES; TOTAL PROTEIN, BODY FLUID < 2.0 G/DL (NOT ESTABLISHED); TRIGLYCERIDE, BODY FLUID 40 MG/DL (NOT ESTABLISHED)
[2024-03-31 15:54] LABS: AMYLASE, BODY FLUID < 20 U/L (NOT ESTABLISHED); LDH, BODY FLUID 53 U/L (NOT ESTABLISHED); SOURCE, BODY FLUID AMYLASE ASCITES; SOURCE, BODY FLUID LDH ASCITES
[2024-03-31] MEDS: HEPARIN SOD (PORCINE) 5000UNITS/ML 1ML VIAL/SYRINGE SQ SCH (16:09)
[2024-03-31 16:48] LABS: SOURCE, BODY FLUID ALBUMIN ASCITES
[2024-03-31 18:46] LABS: APPEARANCE, BODY FLUID CLEAR (CLEAR); ASCITES FL COLOR PALE YELLOW (COLORLESS); SOURCE, BODY FLUID ASCITES
[2024-03-31 19:19] LABS: SOURCE, BODY FLUID ALBUMIN ASCITES
[2024-03-31 19:24] LABS: SOURCE, BODY FLUID GLUCOSE ASCITES
[2024-03-31 19:43] LABS: SOURCE, BODY FLUID TOT PROTEIN ASCITES; TOTAL PROTEIN, BODY FLUID < 2.0 G/DL (NOT ESTABLISHED)
[2024-04-01 04:00] VITALS: BP 116/56; TEMP 97; O2SAT 98
[2024-04-01 09:48] LABS: PROTHROMBIN TIME 22.9 SECONDS (12.5-14.5)
[2024-04-01 09:52] LABS: BASO % 0.1 % (0.0-1.0); EOS # 0.5 10^3/uL (0.0-0.5); EOS % 2.3 % (0.0-3.0); HEMATOCRIT 38.7 % (42.0-52.0); LYMPH # 1.1 10^3/uL (1.5-5.0); LYMPH % 5.5 % (24.0-44.0); MEAN CORPUSCULAR HEMOGLOBIN 32.6 pg (27.0-33.0); MEAN CORPUSCULAR HGB CONC 33.3 g/dl (32.0-36.5); MEAN CORPUSCULAR VOLUME 97.7 fl (80.0-96.0); MONO # 1.1 10^3/uL (0.0-0.8); MONO % 5.6 % (2.0-8.0); NEUTROPHILS # 17.4 10^3/uL (1.5-8.5); PLATELET COUNT, AUTOMATED 126 10^3/uL (150-450); RED BLOOD COUNT 3.96 10^6/uL (4.30-6.10); WHITE BLOOD COUNT 20.2 10^3/uL (4.0-10.0)
[2024-04-01 09:54] LABS: HEMOGLOBIN 12.9 g/dl (13.5-17.5)
[2024-04-01 10:42] LABS: ALBUMIN 2.9 G/DL (3.2-5.2); ALKALINE PHOSPHATASE 220 U/L (40-129); ALT/SGPT 195 U/L (7.0-40); AST/SGOT 344 U/L (<34); BILIRUBIN,DIRECT 2.8 MG/DL (<0.4); BILIRUBIN,TOTAL 4.3 MG/DL (0.3-1.2); BLOOD UREA NITROGEN 26 MG/DL (9-23); CALCIUM LEVEL 8.8 MG/DL (8.3-10.6); CARBON DIOXIDE LEVEL 25 MMOL/L (20-31); CHLORIDE LEVEL 101 MMOL/L (98-107); CREATININE FOR GFR 1.12 MG/DL (0.70-1.30); GLOMERULAR FILTRATION RATE > 60.0 (>49); GLUCOSE, FASTING 159 MG/DL (74-106); MAGNESIUM LEVEL 1.8 MG/DL (1.8-2.4); POTASSIUM SERUM 3.5 MMOL/L (3.5-5.1); SODIUM LEVEL 140 MMOL/L (136-145); TOTAL PROTEIN 6.5 G/DL (5.7-8.2)
[2024-04-01 11:00] LABS: PHOSPHORUS LEVEL 2.3 MG/DL (2.4-5.1)
[2024-04-01 11:44] VITALS: BP 142/71
[2024-04-01 12:00] VITALS: BP 142/71; TEMP 97.7; O2SAT 95
[2024-04-01 16:53] VITALS: BP 132/73
[2024-04-01 20:46] VITALS: BP 138/67; TEMP 97.2; O2SAT 96
[2024-04-02] MEDS ORDERED: SODIUM CHLORIDE 0.9% INJ 10 ML SYR IV PRN (01:55)
[2024-04-02 04:38] VITALS: BP 126/71; TEMP 97.2; O2SAT 95
[2024-04-02] MEDS: SODIUM CHLORIDE 0.9% INJ 10 ML SYR IV SCH (05:53)
[2024-04-02 08:55] LABS: ALBUMIN 2.6 G/DL (3.2-5.2); ALKALINE PHOSPHATASE 205 U/L (40-129); ALT/SGPT 183 U/L (7.0-40); AST/SGOT 258 U/L (<34); BILIRUBIN,DIRECT 2.6 MG/DL (<0.4); BLOOD UREA NITROGEN 23 MG/DL (9-23); CALCIUM LEVEL 8.5 MG/DL (8.3-10.6); CARBON DIOXIDE LEVEL 27 MMOL/L (20-31); CHLORIDE LEVEL 100 MMOL/L (98-107); CREATININE FOR GFR 1.12 MG/DL (0.70-1.30); GLOMERULAR FILTRATION RATE > 60.0 (>49); GLUCOSE, FASTING 104 MG/DL (74-106); PHOSPHORUS LEVEL 2.1 MG/DL (2.4-5.1); SODIUM LEVEL 139 MMOL/L (136-145); TOTAL PROTEIN 5.9 G/DL (5.7-8.2)
[2024-04-02 09:47] LABS: HEMATOCRIT 35.9 % (42.0-52.0); HEMOGLOBIN 12.2 g/dl (13.5-17.5); MEAN CORPUSCULAR HEMOGLOBIN 33.1 pg (27.0-33.0); MEAN CORPUSCULAR VOLUME 97.3 fl (80.0-96.0); PLATELET COUNT, AUTOMATED 113 10^3/uL (150-450); RED BLOOD COUNT 3.69 10^6/uL (4.30-6.10); WHITE BLOOD COUNT 20.6 10^3/uL (4.0-10.0)
[2024-04-02 09:54] LABS: INR 1.87; PROTHROMBIN TIME 21.7 SECONDS (12.5-14.5)
[2024-04-02 10:11] LABS: ALBUMIN 2.7 G/DL (3.2-5.2); ALKALINE PHOSPHATASE 216 U/L (40-129); ALT/SGPT 191 U/L (7.0-40); AST/SGOT 261 U/L (<34); BILIRUBIN,TOTAL 4.2 MG/DL (0.3-1.2); BLOOD UREA NITROGEN 23 MG/DL (9-23); CARBON DIOXIDE LEVEL 26 MMOL/L (20-31); CHLORIDE LEVEL 102 MMOL/L (98-107); CREATININE FOR GFR 1.11 MG/DL (0.70-1.30); GLOMERULAR FILTRATION RATE > 60.0 (>49); GLUCOSE, FASTING 136 MG/DL (74-106); POTASSIUM SERUM 4.2 MMOL/L (3.5-5.1); SODIUM LEVEL 134 MMOL/L (136-145); TOTAL PROTEIN 6.1 G/DL (5.7-8.2)
[2024-04-02 12:00] VITALS: BP 123/64; TEMP 97.5; O2SAT 96
[2024-04-02 16:57] VITALS: BP 148/66
[2024-04-02 17:09] VITALS: BP 133/68
[2024-04-02 20:00] VITALS: BP 131/68; TEMP 97.7; O2SAT 99
[2024-04-03 04:00] VITALS: BP 115/59; TEMP 97.3; O2SAT 98
[2024-04-03 06:11] LABS: HEMATOCRIT 30.1 % (42.0-52.0); HEMOGLOBIN 10.5 g/dl (13.5-17.5); MEAN CORPUSCULAR HEMOGLOBIN 32.9 pg (27.0-33.0); MEAN CORPUSCULAR HGB CONC 34.9 g/dl (32.0-36.5); MEAN CORPUSCULAR VOLUME 94.4 fl (80.0-96.0); PLATELET COUNT, AUTOMATED 100 10^3/uL (150-450); RED BLOOD COUNT 3.19 10^6/uL (4.30-6.10); WHITE BLOOD COUNT 16.8 10^3/uL (4.0-10.0)
[2024-04-03 06:20] LABS: INR 2.1; PROTHROMBIN TIME 23.6 SECONDS (12.5-14.5)
[2024-04-03] MEDS: CIPROFLOXACIN 500MG TABLET PO SCH (06:31)
[2024-04-03 06:41] LABS: ALBUMIN 2.3 G/DL (3.2-5.2); ALKALINE PHOSPHATASE 230 U/L (40-129); ALT/SGPT 167 U/L (7.0-40); AST/SGOT 227 U/L (<34); BLOOD UREA NITROGEN 19 MG/DL (9-23); CALCIUM LEVEL 8.2 MG/DL (8.3-10.6); CARBON DIOXIDE LEVEL 27 MMOL/L (20-31); CHLORIDE LEVEL 100 MMOL/L (98-107); CREATININE FOR GFR 1.05 MG/DL (0.70-1.30); GLOMERULAR FILTRATION RATE > 60.0 (>49); GLUCOSE, FASTING 103 MG/DL (74-106); POTASSIUM SERUM 4.1 MMOL/L (3.5-5.1); SODIUM LEVEL 137 MMOL/L (136-145); TOTAL PROTEIN 5.4 G/DL (5.7-8.2)
[2024-04-03 08:08] VITALS: BP 98/56; TEMP 97.2; O2SAT 97
[2024-04-03 12:07] VITALS: BP 100/62
[2024-04-03] MEDS ORDERED: MIDO5TA NG (14:28)
[2024-04-03] MEDS ORDERED: LACT20EL PO (14:28)
[2024-04-03] MEDS ORDERED: CIPR500T39 PO (14:28)
== END 2024-04-03 16:10 | disposition home health service (06) | DRG 871 ==
LOC: M ED 13:28 → EDBD 13:28 → M ED INP 16:18 → M PCU 17:43 → M ICU 20:21 → M MS5PR 03-31 14:43
PROVIDERS: ADMIT Student in an Organized Health Care Education/Training Program; ATTEND Student in an Organized Health Care Education/Training Program
PROC: 30233J1 Transfusion of Nonautologous Serum Albumin into Peripheral Vein, Percutaneous Approach (ICD-10-PCS; principal; 2024-03-25)
PROC: 02H633Z Insertion of Infusion Device into Right Atrium, Percutaneous Approach (ICD-10-PCS; 2024-03-25)
PROC: 0W9G3ZZ Drainage of Peritoneal Cavity, Percutaneous Approach (ICD-10-PCS; 2024-03-26)
DX: A41.9 Sepsis, unspecified organism (principal); R65.21 Severe sepsis with septic shock; K29.71 Gastritis, unspecified, with bleeding; N17.9 Acute kidney failure, unspecified; I13.0 Hypertensive heart and chronic kidney disease with heart failure and stage 1 through stage 4 chronic kidney disease, or unspecified chronic kidney disease; I50.32 Chronic diastolic (congestive) heart failure; E87.1 Hypo-osmolality and hyponatremia; K76.6 Portal hypertension; N39.0 Urinary tract infection, site not specified; K70.31 Alcoholic cirrhosis of liver with ascites; N18.30 Chronic kidney disease, stage 3 unspecified; E78.5 Hyperlipidemia, unspecified; B96.1 Klebsiella pneumoniae [K. pneumoniae] as the cause of diseases classified elsewhere; K72.90 Hepatic failure, unspecified without coma; F10.10 Alcohol abuse, uncomplicated; K21.9 Gastro-esophageal reflux disease without esophagitis; K59.09 Other constipation; R73.01 Impaired fasting glucose; E03.9 Hypothyroidism, unspecified; F32.9 Major depressive disorder, single episode, unspecified; K76.82 Hepatic encephalopathy; R26.89 Other abnormalities of gait and mobility; Z66 Do not resuscitate; Z79.890 Hormone replacement therapy; Z79.02 Long term (current) use of antithrombotics/antiplatelets

== ENCOUNTER 2024-04-11 13:10 | Inpatient (IN) | payer MEDICARE ==
[2024-04-11] VITALS (35 sets, daily range): BP systolic 90–135; BP diastolic 44–73; TEMP 96.6–97.3; O2SAT 93–100
[~2024-04-11 13:10] MED LIST changes: +CIPR500T39 PO; +MIDO5TA NG; +PANT40TA29 PO; +TRAM50TA2 PO
[2024-04-11] MEDS: NS (Normal Saline) 0.9% 1,000 ML IV ONE ×2 (13:42→15:40)
[2024-04-11] MEDS: PANTOPRAZOLE 40MG VIAL IV ONE (13:50)
[2024-04-11 13:59] LABS: INR 1.58; PROTHROMBIN TIME 19.1 SECONDS (12.5-14.5)
[2024-04-11 14:02] LABS: BASO # 0.1 10^3/uL (0.0-0.2); BASO % 0.6 % (0.0-1.0); EOS # 0.2 10^3/uL (0.0-0.5); EOS % 0.8 % (0.0-3.0); HEMATOCRIT 31.3 % (42.0-52.0); HEMOGLOBIN 11.4 g/dl (13.5-17.5); LYMPH # 1.5 10^3/uL (1.5-5.0); LYMPH % 8.2 % (24.0-44.0); MEAN CORPUSCULAR HEMOGLOBIN 33.8 pg (27.0-33.0); MEAN CORPUSCULAR HGB CONC 36.4 g/dl (32.0-36.5); MEAN CORPUSCULAR VOLUME 92.9 fl (80.0-96.0); MONO # 1.8 10^3/uL (0.0-0.8); MONO % 9.8 % (2.0-8.0); NEUTROPHILS # 14.5 10^3/uL (1.5-8.5); PLATELET COUNT, AUTOMATED 277 10^3/uL (150-450); RED BLOOD COUNT 3.37 10^6/uL (4.30-6.10); WHITE BLOOD COUNT 18.5 10^3/uL (4.0-10.0)
[2024-04-11] MEDS: CEFEPIME HCL 2 GM in DEXTROSE 5% (D5W) ADV/MINI-BAG 50 ML IV ONE (14:41)
[2024-04-11 15:05] LABS: CK-MB VALUE MASS 4.6 NG/ML (<3.6)
[2024-04-11 15:08] LABS: ALBUMIN 2.4 G/DL (3.2-5.2); BILIRUBIN,DIRECT 3.8 MG/DL (<0.4); BILIRUBIN,TOTAL 4.9 MG/DL (0.3-1.2); CALCIUM LEVEL 7.8 MG/DL (8.3-10.6); CREATININE FOR GFR 5.54 MG/DL (0.70-1.30); GLOMERULAR FILTRATION RATE 11.1 (>49); MB/CK RELATIVE INDEX 8.84 (< OR =4); POTASSIUM SERUM 6.4 MMOL/L (3.5-5.1); TOTAL PROTEIN 6.3 G/DL (5.7-8.2)
[2024-04-11] MEDS: PATIROMER SORBITEX CALCIUM 8.4 GM POWDER PACKET (VELTASSA) PO ONE ×2 (15:37→21:53)
[2024-04-11] MEDS: DEXTROSE 50% 50ML SYRINGE IV STA (15:40)
[2024-04-11] MEDS: HumuLIN R (REGULAR) INSULIN (NovoLIN R) **100U/ML** PER UNIT IV ONE (15:40)
[2024-04-11] MEDS: CALCIUM GLUCONATE 1,000 MG in DEXTROSE 5% (D5W) MINI-BAG PLU 100 ML IV ONE (15:40)
[2024-04-11 15:46] LABS: NITRITE, URINE MANUAL RFX NEGATIVE (NEGATIVE); PROTEIN, URINE MANUAL REFLEX 3+ mg/dL (NEGATIVE); SP GRAVITY,URINE MANUAL REFLEX 1.015 (1.002-1.035)
[2024-04-11 15:47] LABS: KETONE, URINE MANUAL REFLEX NEGATIVE (NEGATIVE); UROBILINOGEN, UA MANUAL REFLEX NORMAL (NORMAL)
[2024-04-11 15:50] LABS: WBC, URINE MAN RFX 30-40 /hpf (0-3)
[2024-04-11 15:52] LABS: TRANSITIONAL EPI, URINE RFX SMALL AMOUNT /hpf; YEAST, URINE RFX LARGE AMOUNT
[2024-04-11 15:58] LABS: SQUAMOUS EPITHELIAL URINE RFX LARGE AMOUNT /hpf (SMALL AMT)
[2024-04-11 15:59] LABS: SPERM, URINE RFX SMALL AMOUNT
[2024-04-11 16:01] LABS: MICROSCOPIC EXAM RFX PERFORMED; MUCUS, URINE REFLEX SMALL AMOUNT (NEGATIVE)
[2024-04-11] MEDS: MIDODRINE 5 MG TAB PO ONE (16:17)
[2024-04-11] MEDS: [UNRECOGNIZED DRUG - OTHER] IV ONE (16:37)
[2024-04-11] MEDS: NS 0.9% IV ONE (16:37)
[2024-04-11] MEDS ORDERED: ALBUTEROL SULFATE 2.5MG/0.5ML INH NEB SOLN NEB PRN (17:00)
[2024-04-11] MEDS: NOREPINEPHRINE 4MG IN D5 250ML 4 MG in IV 1 EA IV SCH (17:05)
[2024-04-11] MEDS ORDERED: CIPR500T39 PO (17:07)
[2024-04-11] MEDS ORDERED: CONS10SO3 PO (17:07)
[2024-04-11] MEDS ORDERED: MIDO5TA PO (17:07)
[2024-04-11] MEDS ORDERED: HOME MED LIST COMPLETE! XX SCH (17:10)
[2024-04-11 17:28] LABS: CK-MB VALUE MASS 4.4 NG/ML (<3.6)
[2024-04-11 17:33] LABS: BILIRUBIN,TOTAL 4.3 MG/DL (0.3-1.2); CALCIUM LEVEL 7.7 MG/DL (8.3-10.6); CREATININE FOR GFR 5.63 MG/DL (0.70-1.30); GLOMERULAR FILTRATION RATE 10.9 (>49); MB/CK RELATIVE INDEX 9.56 (< OR =4); TOTAL PROTEIN 5.4 G/DL (5.7-8.2)
[2024-04-11] MEDS: SODIUM BICARBONATE 150 MEQ in STERILE WATER LITER BAG 1,000 ML IV SCH (20:47)
[2024-04-11] MEDS: LR 500 ML IV ONE (21:34)
[2024-04-12] VITALS (100 sets, daily range): BP systolic 77–137; BP diastolic 39–64; TEMP 95.4–98.4; O2SAT 86–100
[2024-04-12] MEDS: LACTULOSE 20GM/30ML SYRUP UDC PO SCH (00:32)
[2024-04-12] MEDS: rifAXIMin 550 MG TAB (XIFAXAN) PO SCH (00:32)
[2024-04-12 01:28] LABS: ALBUMIN 3.3 G/DL (3.2-5.2); BILIRUBIN,TOTAL 4.8 MG/DL (0.3-1.2); CALCIUM LEVEL 8.3 MG/DL (8.3-10.6); CREATININE FOR GFR 5.81 MG/DL (0.70-1.30); GLOMERULAR FILTRATION RATE 10.5 (>49); TOTAL PROTEIN 6.2 G/DL (5.7-8.2)
[2024-04-12] MEDS: HumuLIN R (REGULAR) INSULIN (NovoLIN R) **100U/ML** PER UNIT IV STA (04:20)
[2024-04-12] MEDS: DEXTROSE 50% 50ML SYRINGE IV STA (04:21)
[2024-04-12] MEDS: CALCIUM GLUCONATE 1,000 MG in DEXTROSE 5% (D5W) MINI-BAG PLU 100 ML IV ONE (04:21)
[2024-04-12] MEDS: MORPHINE 2 MG/ML 1ML VIAL IV ONE (05:11)
[2024-04-12] MEDS: HEPARIN SOD (PORCINE) 5000UNITS/ML 1ML VIAL/SYRINGE SC SCH ×2 (05:49→20:18)
[2024-04-12 06:55] LABS: HEMATOCRIT 23.7 % (42.0-52.0); MEAN CORPUSCULAR HEMOGLOBIN 33.3 pg (27.0-33.0); MEAN CORPUSCULAR HGB CONC 36.3 g/dl (32.0-36.5); MEAN CORPUSCULAR VOLUME 91.9 fl (80.0-96.0); PLATELET COUNT, AUTOMATED 178 10^3/uL (150-450); RED BLOOD COUNT 2.58 10^6/uL (4.30-6.10); WHITE BLOOD COUNT 17.9 10^3/uL (4.0-10.0)
[2024-04-12 07:05] LABS: HEMOGLOBIN 8.6 g/dl (13.5-17.5)
[2024-04-12 07:13] LABS: BILIRUBIN,TOTAL 4.7 MG/DL (0.3-1.2); CALCIUM LEVEL 7.9 MG/DL (8.3-10.6); CREATININE FOR GFR 5.84 MG/DL (0.70-1.30); GLOMERULAR FILTRATION RATE 10.4 (>49); POTASSIUM SERUM 5.4 MMOL/L (3.5-5.1); TOTAL PROTEIN 5.8 G/DL (5.7-8.2)
[2024-04-12] MEDS ORDERED: traMADol 50 MG TAB PO PRN (07:30)
[2024-04-12] MEDS ORDERED: PILL CUTTER 1 EACH XX PRN (08:05)
[2024-04-12] MEDS: FOLIC ACID 1MG TAB PO SCH (08:44)
[2024-04-12] MEDS: CLOPIDOGREL 75 MG TAB PO SCH (08:44)
[2024-04-12] MEDS: THIAMINE 100 MG TAB PO SCH (08:44)
[2024-04-12] MEDS: MIDODRINE 5 MG TAB PO SCH (08:44)
[2024-04-12] MEDS: PANTOPRAZOLE 40MG TAB (PROTONIX) PO SCH (08:44)
[2024-04-12] MEDS ORDERED: HEPARIN 1,000UNITS/ML 10ML VIAL (FOR RADIOLOGY & DIALYSIS ONLY) CRRT PRN ×2 (09:25)
[2024-04-12] MEDS ORDERED: SODIUM CHLORIDE 0.9% 1000 ML CRRT SCH (10:15)
[2024-04-12] MEDS: LEVOTHYROXINE 25MCG TABLET (0.025MG) PO SCH (10:42)
[2024-04-12 11:05] LABS: IONIZED CALCIUM 4.3 MG/DL (4.5-5.3)
[2024-04-12 11:23] LABS: INR 2.1; PARTIAL THROMBOPLASTIN TIME 104.4 SECONDS (24.8-34.2); PROTHROMBIN TIME 23.7 SECONDS (12.5-14.5)
[2024-04-12 11:26] LABS: HEMATOCRIT 24.9 % (42.0-52.0); MEAN CORPUSCULAR HEMOGLOBIN 32.5 pg (27.0-33.0); MEAN CORPUSCULAR HGB CONC 36.1 g/dl (32.0-36.5); MEAN CORPUSCULAR VOLUME 89.9 fl (80.0-96.0); PLATELET COUNT, AUTOMATED 189 10^3/uL (150-450); RED BLOOD COUNT 2.77 10^6/uL (4.30-6.10)
[2024-04-12 11:52] LABS: CALCIUM LEVEL 8.2 MG/DL (8.3-10.6); CREATININE FOR GFR 5.99 MG/DL (0.70-1.30); GLOMERULAR FILTRATION RATE 10.1 (>49); MAGNESIUM LEVEL 1.8 MG/DL (1.8-2.4); POTASSIUM SERUM 5.6 MMOL/L (3.5-5.1)
[2024-04-12 12:13] LABS: PHOSPHORUS LEVEL 7.5 MG/DL (2.4-5.1)
[2024-04-12 12:22] LABS: APPEARANCE, BODY FLUID CLEAR (CLEAR); PERITONEAL FL COLOR YELLOW (COLORLESS); SOURCE, BODY FLUID PERITONEAL
[2024-04-12 12:35] LABS: SOURCE, BODY FLUID ALBUMIN PERITONEAL
[2024-04-12] MEDS: MAG SULF 1GM/100ML (MAG RUN) 1 GM in IV 1 EA IV ONE (13:08)
[2024-04-12] MEDS: CEFEPIME HCL 2 GM in DEXTROSE 5% (D5W) ADV/MINI-BAG 50 ML IV SCH ×2 (13:09→20:17)
[2024-04-12 13:13] LABS: SOURCE, BODY FLUID TOT PROTEIN PERITONEAL; TOTAL PROTEIN, BODY FLUID < 2.0 G/DL (NOT ESTABLISHED)
[2024-04-12] MEDS: CALCIUM GLUCONATE 1,000 MG, VIAL MATE ADAPTER 1 EACH in NS 100 ML IV SCH (14:08)
[2024-04-12] MEDS ORDERED: NS B BRAUN IV SCH (15:00)
[2024-04-12] MEDS ORDERED: CALCIUM GLUCONATE IV SCH (15:00)
[2024-04-12] MEDS ORDERED: CEFEPIME HCL 2 GM in DEXTROSE 5% (D5W) ADV/MINI-BAG 50 ML IV SCH (15:40)
[2024-04-12 18:20] LABS: IONIZED CALCIUM 4.6 MG/DL (4.5-5.3)
[2024-04-12 18:28] LABS: HEMATOCRIT 23.8 % (42.0-52.0); HEMOGLOBIN 8.9 g/dl (13.5-17.5); MEAN CORPUSCULAR HEMOGLOBIN 33.7 pg (27.0-33.0); MEAN CORPUSCULAR VOLUME 90.2 fl (80.0-96.0); PLATELET COUNT, AUTOMATED 173 10^3/uL (150-450); RED BLOOD COUNT 2.64 10^6/uL (4.30-6.10); WHITE BLOOD COUNT 13.1 10^3/uL (4.0-10.0)
[2024-04-12 18:29] LABS: MEAN CORPUSCULAR HGB CONC 37.4 g/dl (32.0-36.5)
[2024-04-12 18:56] LABS: CALCIUM LEVEL 8.8 MG/DL (8.3-10.6); CREATININE FOR GFR 4.12 MG/DL (0.70-1.30); GLOMERULAR FILTRATION RATE 15.6 (>49); PHOSPHORUS LEVEL 5.4 MG/DL (2.4-5.1); POTASSIUM SERUM 4.8 MMOL/L (3.5-5.1)
[2024-04-12] MEDS: PRAVASTATIN 20 MG TAB PO SCH (20:18)
[2024-04-12 23:37] LABS: IONIZED CALCIUM 4.6 MG/DL (4.5-5.3)
[2024-04-12 23:45] LABS: HEMATOCRIT 23.6 % (42.0-52.0); HEMOGLOBIN 8.6 g/dl (13.5-17.5); MEAN CORPUSCULAR HEMOGLOBIN 33.2 pg (27.0-33.0); MEAN CORPUSCULAR HGB CONC 36.4 g/dl (32.0-36.5); MEAN CORPUSCULAR VOLUME 91.1 fl (80.0-96.0); PLATELET COUNT, AUTOMATED 169 10^3/uL (150-450); RED BLOOD COUNT 2.59 10^6/uL (4.30-6.10); WHITE BLOOD COUNT 12.4 10^3/uL (4.0-10.0)
[2024-04-13] VITALS (96 sets, daily range): BP systolic 72–127; BP diastolic 44–67; TEMP 96.3–98.1; O2SAT 92–100
[2024-04-13 00:11] LABS: CALCIUM LEVEL 8.9 MG/DL (8.3-10.6); CREATININE FOR GFR 3.43 MG/DL (0.70-1.30); GLOMERULAR FILTRATION RATE 19.3 (>49); PHOSPHORUS LEVEL 5.1 MG/DL (2.4-5.1); POTASSIUM SERUM 4.6 MMOL/L (3.5-5.1)
[2024-04-13 05:13] LABS: IONIZED CALCIUM 4.5 MG/DL (4.5-5.3)
[2024-04-13 05:27] LABS: HEMATOCRIT 22.7 % (42.0-52.0); HEMOGLOBIN 8.4 g/dl (13.5-17.5); MEAN CORPUSCULAR HEMOGLOBIN 33.3 pg (27.0-33.0); MEAN CORPUSCULAR VOLUME 90.1 fl (80.0-96.0); PLATELET COUNT, AUTOMATED 130 10^3/uL (150-450); RED BLOOD COUNT 2.52 10^6/uL (4.30-6.10); WHITE BLOOD COUNT 9.5 10^3/uL (4.0-10.0)
[2024-04-13 05:43] LABS: PERCENT SATURATION 57.3 % (19.7-50.0)
[2024-04-13 05:44] LABS: ALBUMIN 2.9 G/DL (3.2-5.2); BILIRUBIN,TOTAL 5.2 MG/DL (0.3-1.2); CALCIUM LEVEL 8.8 MG/DL (8.3-10.6); CREATININE FOR GFR 2.81 MG/DL (0.70-1.30); GLOMERULAR FILTRATION RATE 24.3 (>49); PHOSPHORUS LEVEL 4.5 MG/DL (2.4-5.1); POTASSIUM SERUM 4.2 MMOL/L (3.5-5.1); TOTAL PROTEIN 5.7 G/DL (5.7-8.2)
[2024-04-13] MEDS: CALCIUM GLUCONATE 1,000 MG, VIAL MATE ADAPTER 1 EACH in NS 100 ML IV ONE (06:59)
[2024-04-13] MEDS: ACETAMINOPHEN 325 MG TAB PO PRN (08:11)
[2024-04-13 12:03] LABS: IONIZED CALCIUM 4.7 MG/DL (4.5-5.3)
[2024-04-13 12:08] LABS: HEMATOCRIT 22.6 % (42.0-52.0); HEMOGLOBIN 8.2 g/dl (13.5-17.5); MEAN CORPUSCULAR HEMOGLOBIN 33.3 pg (27.0-33.0); MEAN CORPUSCULAR HGB CONC 36.3 g/dl (32.0-36.5); MEAN CORPUSCULAR VOLUME 91.9 fl (80.0-96.0); PLATELET COUNT, AUTOMATED 104 10^3/uL (150-450); RED BLOOD COUNT 2.46 10^6/uL (4.30-6.10); WHITE BLOOD COUNT 8.6 10^3/uL (4.0-10.0)
[2024-04-13 12:44] LABS: CALCIUM LEVEL 8.5 MG/DL (8.3-10.6); CREATININE FOR GFR 2.11 MG/DL (0.70-1.30); GLOMERULAR FILTRATION RATE 33.8 (>49); MAGNESIUM LEVEL 1.9 MG/DL (1.8-2.4); PHOSPHORUS LEVEL 3.9 MG/DL (2.4-5.1); POTASSIUM SERUM 4.2 MMOL/L (3.5-5.1)
[2024-04-13] MEDS: MAG SULF 1GM/100ML (MAG RUN) 1 GM in IV 1 EA IV ONE (13:15)
[2024-04-13] MEDS ORDERED: SODIUM CHLORIDE 0.9% INJ 10 ML SYR IV PRN (14:45)
[2024-04-13 17:54] LABS: IONIZED CALCIUM 4.6 MG/DL (4.5-5.3)
[2024-04-13 18:01] LABS: HEMATOCRIT 21.7 % (42.0-52.0); HEMOGLOBIN 7.9 g/dl (13.5-17.5); MEAN CORPUSCULAR HEMOGLOBIN 33.8 pg (27.0-33.0); MEAN CORPUSCULAR HGB CONC 36.4 g/dl (32.0-36.5); MEAN CORPUSCULAR VOLUME 92.7 fl (80.0-96.0); RED BLOOD COUNT 2.34 10^6/uL (4.30-6.10); WHITE BLOOD COUNT 7.2 10^3/uL (4.0-10.0)
[2024-04-13 18:02] LABS: PLATELET COUNT, AUTOMATED 99 10^3/uL (150-450)
[2024-04-13] MEDS ORDERED: CALCIUM GLUCONATE 1,000 MG in DEXTROSE 5% (D5W) MINI-BAG PLU 100 ML IV ONE (18:15)
[2024-04-13 18:26] LABS: CALCIUM LEVEL 8.7 MG/DL (8.3-10.6); CREATININE FOR GFR 1.78 MG/DL (0.70-1.30); GLOMERULAR FILTRATION RATE 41.2 (>49); MAGNESIUM LEVEL 2.1 MG/DL (1.8-2.4); PHOSPHORUS LEVEL 3.5 MG/DL (2.4-5.1); POTASSIUM SERUM 3.8 MMOL/L (3.5-5.1)
[2024-04-13] MEDS: CALCIUM GLUCONATE 1,000 MG, VIAL MATE ADAPTER 1 EACH in NS 100 ML IV STA (18:36)
[2024-04-13] MEDS: KCL 20MEQ IN 100ML SWI (KRUN) 20 MEQ in IV 1 EA IV ONE (20:58)
[2024-04-13 23:30] LABS: IONIZED CALCIUM 4.7 MG/DL (4.5-5.3)
[2024-04-14] VITALS (79 sets, daily range): BP systolic 82–117; BP diastolic 44–59; TEMP 96.8–99; O2SAT 89–100
[2024-04-14 00:14] LABS: CALCIUM LEVEL 8.5 MG/DL (8.3-10.6); CREATININE FOR GFR 1.62 MG/DL (0.70-1.30); GLOMERULAR FILTRATION RATE 45.9 (>49); PHOSPHORUS LEVEL 3.2 MG/DL (2.4-5.1); POTASSIUM SERUM 3.9 MMOL/L (3.5-5.1)
[2024-04-14] MEDS: KCL 20MEQ IN 100ML SWI (KRUN) 20 MEQ in IV 1 EA IV ONE ×2 (00:34→08:01)
[2024-04-14 05:16] LABS: IONIZED CALCIUM 4.6 MG/DL (4.5-5.3)
[2024-04-14 05:29] LABS: HEMATOCRIT 22.7 % (42.0-52.0); HEMOGLOBIN 8.3 g/dl (13.5-17.5); MEAN CORPUSCULAR HEMOGLOBIN 33.7 pg (27.0-33.0); MEAN CORPUSCULAR VOLUME 92.3 fl (80.0-96.0); RED BLOOD COUNT 2.46 10^6/uL (4.30-6.10); WHITE BLOOD COUNT 8.4 10^3/uL (4.0-10.0)
[2024-04-14 05:30] LABS: PLATELET COUNT, AUTOMATED 91 10^3/uL (150-450)
[2024-04-14 05:31] LABS: MEAN CORPUSCULAR HGB CONC 36.6 g/dl (32.0-36.5)
[2024-04-14 05:41] LABS: INR 2.47; PARTIAL THROMBOPLASTIN TIME 82.4 SECONDS (24.8-34.2); PROTHROMBIN TIME 26.8 SECONDS (12.5-14.5)
[2024-04-14 05:48] LABS: CALCIUM LEVEL 8.4 MG/DL (8.3-10.6); CREATININE FOR GFR 1.39 MG/DL (0.70-1.30); GLOMERULAR FILTRATION RATE 54.8 (>49); MAGNESIUM LEVEL 1.9 MG/DL (1.8-2.4); PHOSPHORUS LEVEL 2.8 MG/DL (2.4-5.1); POTASSIUM SERUM 3.8 MMOL/L (3.5-5.1)
[2024-04-14] MEDS: MAG SULF 1GM/100ML (MAG RUN) 1 GM in IV 1 EA IV ONE (06:22)
[2024-04-14] MEDS: CALCIUM GLUCONATE 1,000 MG, VIAL MATE ADAPTER 1 EACH in NS 100 ML IV ONE (08:02)
[2024-04-14 12:31] LABS: HEMATOCRIT 22.7 % (42.0-52.0); HEMOGLOBIN 8.2 g/dl (13.5-17.5); MEAN CORPUSCULAR HEMOGLOBIN 33.9 pg (27.0-33.0); MEAN CORPUSCULAR HGB CONC 36.1 g/dl (32.0-36.5); MEAN CORPUSCULAR VOLUME 93.8 fl (80.0-96.0); RED BLOOD COUNT 2.42 10^6/uL (4.30-6.10)
[2024-04-14] MEDS: cefTRIAXone SOD 1 GM in DEXTROSE 5% (D5W) ADV/MINI-BAG 50 ML IV SCH (12:38)
[2024-04-14 12:44] LABS: IONIZED CALCIUM 4.7 MG/DL (4.5-5.3)
[2024-04-14 12:47] LABS: PLATELET COUNT, AUTOMATED 86 10^3/uL (150-450)
[2024-04-14 13:18] LABS: CREATININE FOR GFR 1.39 MG/DL (0.70-1.30); GLOMERULAR FILTRATION RATE 54.8 (>49); MAGNESIUM LEVEL 2.1 MG/DL (1.8-2.4); PHOSPHORUS LEVEL 2.8 MG/DL (2.4-5.1); POTASSIUM SERUM 4.1 MMOL/L (3.5-5.1)
[2024-04-14 13:25] LABS: PROCALCITONIN 0.33 ng/ml
[2024-04-15] VITALS (8 sets, daily range): BP systolic 81–100; BP diastolic 48–53; TEMP 97.2–97.7; O2SAT 95–98
[2024-04-15 04:36] LABS: HEMATOCRIT 21.9 % (42.0-52.0); HEMOGLOBIN 7.8 g/dl (13.5-17.5); MEAN CORPUSCULAR HEMOGLOBIN 33.6 pg (27.0-33.0); MEAN CORPUSCULAR HGB CONC 35.6 g/dl (32.0-36.5); MEAN CORPUSCULAR VOLUME 94.4 fl (80.0-96.0); RED BLOOD COUNT 2.32 10^6/uL (4.30-6.10); WHITE BLOOD COUNT 8.7 10^3/uL (4.0-10.0)
[2024-04-15 04:39] LABS: PLATELET COUNT, AUTOMATED 81 10^3/uL (150-450)
[2024-04-15 05:09] LABS: PHOSPHORUS LEVEL 2.7 MG/DL (2.4-5.1)
[2024-04-15 05:11] LABS: ALBUMIN 2.4 G/DL (3.2-5.2); BILIRUBIN,TOTAL 6.4 MG/DL (0.3-1.2); CALCIUM LEVEL 8.5 MG/DL (8.3-10.6); CREATININE FOR GFR 1.92 MG/DL (0.70-1.30); GLOMERULAR FILTRATION RATE 37.7 (>49); POTASSIUM SERUM 3.5 MMOL/L (3.5-5.1)
[2024-04-15] MEDS ORDERED: ATROPINE SULFATE 1% OPHTH SOLN 2ML BTL SL PRN (13:10)
[2024-04-15] MEDS ORDERED: ONDANSETRON 4MG ORAL DISINTEGRATING TAB PO PRN (13:10)
[2024-04-15] MEDS ORDERED: LORazepam 1 MG TAB PO PRN (13:10)
[2024-04-15] MEDS ORDERED: MORPHINE 10MG/0.5ML ORAL CONCENTRATE SOLUTION U/D SL PRN (13:10)
[2024-04-15] MEDS ORDERED: HYOSCYAMINE SULFATE 0.125 MG SUBL TABLET PO PRN (13:10)
[2024-04-16 10:45] VITALS: BP 91/55; TEMP 98.8; O2SAT 98
[2024-04-16] MEDS ORDERED: ISOVUE-300 61% 100ML VIAL IV SCH (11:25)
[2024-04-16] MEDS: LIDOCAINE 1% MDV 20ML VIAL SC SCH (12:08)
[2024-04-17] MEDS ORDERED: SODIUM CHLORIDE 0.9% 1000 ML IV PRN (06:00)
[2024-04-17] MEDS ORDERED: HEPARIN 1,000UNITS/ML 10ML VIAL (FOR RADIOLOGY & DIALYSIS ONLY) IV PRN (06:00)
[2024-04-17] MEDS ORDERED: HEPARIN 1,000UNITS/ML 10ML VIAL (FOR RADIOLOGY & DIALYSIS ONLY) XX SCH (06:00)
[2024-04-21] MEDS ORDERED: ONDA-282 PO (11:20)
[2024-04-21] MEDS ORDERED: CONS10SO3 PO (11:20)
[2024-04-21] MEDS ORDERED: MORP1SOL5 PO (11:21)
[2024-04-21] MEDS ORDERED: HYOS125TA PO (11:21)
[2024-04-21] MEDS ORDERED: ATIV1TAB10 PO (11:21)
[2024-04-21] MEDS ORDERED: ATRO2DRO4 SL (11:23)
== END 2024-04-21 12:45 | disposition hospice, home (50) | DRG 871 ==
LOC: EDBD 13:10 → M ED 13:10 → M ED INP 16:23 → M ICU 18:01 → M MS4PR 04-16 12:53
PROVIDERS: ADMIT Internal Medicine Pulmonary Disease; ATTEND Internal Medicine Nephrology
PROC: 05HM33Z Insertion of Infusion Device into Right Internal Jugular Vein, Percutaneous Approach (ICD-10-PCS; principal; 2024-04-11)
PROC: 02HV33Z Insertion of Infusion Device into Superior Vena Cava, Percutaneous Approach (ICD-10-PCS; 2024-04-12)
PROC: 0JH63XZ Insertion of Tunneled Vascular Access Device into Chest Subcutaneous Tissue and Fascia, Percutaneous Approach (ICD-10-PCS; 2024-04-12)
PROC: 0W9G3ZZ Drainage of Peritoneal Cavity, Percutaneous Approach (ICD-10-PCS; 2024-04-12)
PROC: 0WHG33Z Insertion of Infusion Device into Peritoneal Cavity, Percutaneous Approach (ICD-10-PCS; 2024-04-16)
DX: A41.9 Sepsis, unspecified organism (principal); G93.41 Metabolic encephalopathy; R65.21 Severe sepsis with septic shock; K76.7 Hepatorenal syndrome; N17.9 Acute kidney failure, unspecified; I50.32 Chronic diastolic (congestive) heart failure; I13.0 Hypertensive heart and chronic kidney disease with heart failure and stage 1 through stage 4 chronic kidney disease, or unspecified chronic kidney disease; E87.1 Hypo-osmolality and hyponatremia; E87.20 Acidosis, unspecified; N18.31 Chronic kidney disease, stage 3a; K70.31 Alcoholic cirrhosis of liver with ascites; E03.9 Hypothyroidism, unspecified; D69.6 Thrombocytopenia, unspecified; E87.5 Hyperkalemia; K21.9 Gastro-esophageal reflux disease without esophagitis; Z51.5 Encounter for palliative care; F12.90 Cannabis use, unspecified, uncomplicated; E66.9 Obesity, unspecified; K59.00 Constipation, unspecified; E78.5 Hyperlipidemia, unspecified; Z79.899 Other long term (current) drug therapy; Z66 Do not resuscitate; D64.9 Anemia, unspecified